=== PATIENT | female | born 1970 | race Caucasian/White ===

== ENCOUNTER 2018-07-05 16:27 | Outpatient (REF) | payer BC, SELFPAY ==
--- NOTE | 2018-07-05 15:45 | PAPFT_PTH ---
PATIENT: Grace Winston LOC: N U#:[id number] AGE/SX: 48/F ROOM: RE07/05/[address]: BRIDGET Fletcher : 1970 BED: DIS: 07/05/2018 SPEC #: [id number] RECD: 07/05/18 17:55 STATUS: HANK REChris #: [id number] USHA: 07/05/18 15:[address]: Padmini Ramos DEPT: [facility] Cytology RECD BY: Keena Ashley ENTERED: 07/05/18 17:55 SP TYPE: PAPFT OT DR: Emigdio Keane MD Tissues: 1 - CX/ENDOCX FOR PAP SMEARS Procedures: PAP THIN PREP/UVM Screening HPV DNA PROBE Comments: [id number]
== END 2018-07-05 16:47 ==
LOC: LBN 16:27
PROVIDERS: PCP Family Medicine; Visit Provider Nurse Practitioner Family
DX: Z12.4 Encounter for screening for malignant neoplasm of cervix (principal); Z11.51 Encounter for screening for human papillomavirus (HPV)
CPT/HCPCS: 88142; 87624

== ENCOUNTER 2018-07-13 01:06 | Outpatient (CLI) | payer BC, SELFPAY ==
--- NOTE | 2018-07-13 16:29 | DI.MAMMO_ITS ---
SYMPTOMS/DIAGNOSIS: SCREENING, Z12.31 MAMMOGRAM: Mammograms were interpreted according to the usual protocol including computer analysis with CAD system, tomosynthesis and C view imaging. The breasts are of moderate density with fairly symmetrical distribution of fibroglandular tissue. No dominant mass or clumped microcalcification is identified in either breast. The current examination is compared with previous examinations including 05/31 and there has been no gross interval change in appearance in comparison with the previous studies. CONCLUSION: No specific evidence of malignancy at this time. Routine screening examinations are suggested at yearly intervals due to the family history of breast carcinoma. Category I. Breast density Category B. MQSA ASSESSMENT OF FINDINGS: Negative. Category 1. Patient will receive a letter notifying them of these results. BI-RADS category B. There are scattered areas of fibroglandular density.
== END 2018-07-13 01:26 ==
PROVIDERS: PCP Family Medicine; Visit Provider Nurse Practitioner Family
DX: Z12.31 Encounter for screening mammogram for malignant neoplasm of breast (principal); Z80.3 Family history of malignant neoplasm of breast
CPT/HCPCS: 77063; 77067

== ENCOUNTER 2019-07-18 15:20 | Outpatient (CLI) | payer BC, SELFPAY ==
[2019-07-18 16:21] LABS: TSH (W/Ref FT4) 3.12 uIU/mL (0.36-3.74)
== END 2019-07-18 15:40 ==
PROVIDERS: PCP Family Medicine; Visit Provider Nurse Practitioner Family
DX: R53.83 Other fatigue (principal)
CPT/HCPCS: 36415; 84443

== ENCOUNTER 2019-07-18 15:36 | Outpatient (REF) | payer BC, SELFPAY ==
--- NOTE | 2019-07-18 15:10 | PAPFT_PTH ---
PATIENT: Grace Winston LOC: [facility] U#:[id number] AGE/SX: 49/F ROOM: RE07/18/[address]: BRIDGET Fletcher : 1970 BED: DIS: 07/18/2019 SPEC #: [id number] RECD: 07/18/19 17:28 STATUS: HANK REChris #: [id number] USHA: 07/18/19 15:[address]: Padmini Ramos DEPT: [facility] Cytology RECD BY: Keena Ashley ENTERED: 07/18/19 17:30 SP TYPE: PAPFT OT DR: Emigdio Keane MD Tissues: 1 - CX/ENDOCX FOR PAP SMEARS Procedures: PAP THIN PREP/UVM Screening HPV DNA PROBE Comments: [id number]
== END 2019-07-18 15:56 ==
LOC: LBN 15:36
PROVIDERS: PCP Family Medicine; Visit Provider Nurse Practitioner Family
DX: Z12.4 Encounter for screening for malignant neoplasm of cervix (principal)
CPT/HCPCS: 88142; 87624

== ENCOUNTER 2019-08-22 01:05 | Outpatient (CLI) | payer BC, SELFPAY ==
--- NOTE | 2019-08-22 15:30 | DI.MAMMO_ITS ---
EXAM: MG MAMMO SCREENING CLINICAL HISTORY: SCREENING TECHNIQUE: Bilateral full field digital CC and MLO mammographic images were obtained with 3D tomosyn thesis and utilizing computer aided detection (CAD). COMPARISON: Available for comparison. FINDINGS: Masses/Architectural Distortion: None seen. Microcalcifications: No suspicious pleomorphic-type are seen. Skin Thickening/Nipple Retraction: None. IMPRESSION: 1. No significant interval change with no specific features of malignancy noted. 2. Unless there is more urgent need, screening mammography is recommended, as per [place] [employer] guidelines. BI-RADS Cat 1 - Negative Breast Density - Category B - Scattered areas of fibroglandular density A negative radiographic report should not delay biopsy if a dominant or clinically suspicious mass is present. Up to ten percent of cancers are not identified on mammography. A negative report may reinforce clinical impression. Adenosis and dense breasts may obscure an underlying neoplasm. False positive reports average 6 to 10%. Patient will receive a letter notifying them of these results.
== END 2019-08-22 01:25 ==
PROVIDERS: PCP Family Medicine; Visit Provider Nurse Practitioner Family
DX: Z12.31 Encounter for screening mammogram for malignant neoplasm of breast (principal)
CPT/HCPCS: 77063; 77067

== ENCOUNTER 2020-11-05 00:56 | Outpatient (CLI) | payer BC, SELFPAY ==
--- NOTE | 2020-11-05 15:28 | DI.MAMMO_ITS ---
Exam(s) MAMMO SCREENING EXAM: MAMMO SCREENING CLINICAL HISTORY: screening. TECHNIQUE: Bilateral full field digital CC and MLO mammographic images were obtained with 3D tomosyn thesis and utilizing computer aided detection (CAD). COMPARISON: Prior mammograms dating back to 2010, the most recent being August 2019. FINDINGS: No new significant radiograph findings in left breast In the upper outer quadrant of the right breast there is a noncalcified lobulated nodular density loc ated approximately 10 cm in from the nipple. Spot compression view recommended No malignant-appearing microcalcification groups is region or elsewhere in either breast There is no significant architectural distortion nor skin thickening-retraction. IMPRESSION: No radiographic evidence of malignancy in left breast Right breast asymmetric density-possible nodule located laterally. Spot compression and possible ult rasound recommended. BI-RADS Category 0 - Assessment Incomplete: Need additional imaging evaluation Breast Density - Category B - Scattered areas of fibroglandular density Breast density Category C or D implies that the patient has dense breast tissue. Dense breast tissue can make it harder to find cancer on a mammogram. Dense breast tissue is also associated with an incr eased risk of breast cancer. This information about the result of the mammogram report was provided to the patient to raise their awareness. Use this report when you speak with the patient about their risks for breast cancer, which includes their family history. At that time, you may recommend additional screening tests (Ultrasoun d or MRI) as these tests may add significant information. A negative radiographic report should not delay biopsy if a dominant or clinically suspicious mass is present. Up to ten percent of cancers are not identified on mammography. A negative report may reinforce clinical impression. Adenosis and dense breasts may obscure an underlying neoplasm. False positive reports average 6 to 10%. Patient will receive a letter notifying them of these results.
== END 2020-11-05 01:16 ==
PROVIDERS: PCP Family Medicine; Visit Provider Nurse Practitioner Family
DX: Z12.31 Encounter for screening mammogram for malignant neoplasm of breast (principal); R92.8 Other abnormal and inconclusive findings on diagnostic imaging of breast
CPT/HCPCS: 77063; 77067

== ENCOUNTER 2020-11-15 01:59 | Outpatient (CLI) | payer BC, SELFPAY ==
--- NOTE | 2020-11-15 | DI.US_ITS ---
Exam(s) MG MAMMO SCREEN CALL BACK UNI US BREAST RT LIMITED EXAM: MG MAMMO SCREEN CALL BACK UNI and U/S breast RT limited CLINICAL HISTORY: F/U MAMMO, NODULAR DENSITY,? NODULE. TECHNIQUE: Craniocaudal and mediolateral oblique Full Field Digital Mammography views of the right b reast with Computer Aided Diagnosis followed by Tomosynthesis and right breast ultrasound. COMPARISON: Priors available for comparison. FINDINGS: Mammography/Tomosynthesis: Masses/Architectural Distortion: No masses persist on the additional views. Microcalcifictions: No suspicious pleomorphic-type are seen. Skin Thickening/Nipple Retraction: None. Right breast US: Echotexture: Normal appearance of the glandular tissue. Shadowing: No suspicious foci. Cyst: There is a 0.4 x 0.4 x 0.3 cm simple cyst at the 10 o'clock position of the right breast. Ther e are 2 benign-appearing lymph nodes present. One at the 10 o'clock position of the right breast telma r the axilla measuring 0.8 x 0.3 x 0.7 cm. The 2nd is in the axilla and measures 1.0 x 0.8 x 0.5 cm. Solid lesions: None seen. Ductal dilation: None. IMPRESSION: 1. No definite evidence of malignancy is noted. 2. A six-month follow-up right mammogram is recommended for re-evaluation. 3. The findings were discussed with the patient on the date of the examination. BI-RADS Category 3 - 6 month - Probably Benign Finding: Recommend follow-up imaging in 6 months Breast Density - Category B - Scattered areas of fibroglandular density Breast density Category C or D implies that the patient has dense breast tissue. Dense breast tissue can make it harder to find cancer on a mammogram. Dense breast tissue is also associated with an incr eased risk of breast cancer. This information about the result of the mammogram report was provided to the patient to raise their awareness. Use this report when you speak with the patient about their risks for breast cancer, which includes their family history. At that time, you may recommend additional screening tests (Ultrasoun d or MRI) as these tests may add significant information. A negative radiographic report should not delay biopsy if a dominant or clinically suspicious mass is present. Up to ten percent of cancers are not identified on mammography. A negative report may reinforce clinical impression. Adenosis and dense breasts may obscure an underlying neoplasm. False positive reports average 6 to 10%. Patient will receive a letter notifying them of these results.
== END 2020-11-15 02:19 ==
PROVIDERS: PCP Family Medicine; Visit Provider Nurse Practitioner Family
DX: Z12.31 Encounter for screening mammogram for malignant neoplasm of breast (principal); R92.8 Other abnormal and inconclusive findings on diagnostic imaging of breast; N60.01 Solitary cyst of right breast; N60.81 Other benign mammary dysplasias of right breast
CPT/HCPCS: 76642; 77063; 77067

== ENCOUNTER 2020-11-28 10:07 | Outpatient (CLI) | payer BC, SELFPAY ==
[2020-11-28 13:18] LABS: Calculated LDL 130 mg/dL (<100); Cholesterol 225 mg/dL (<200); Ferritin 3 ng/mL (8-252); Glucose 88 mg/dL (74-106); HDL Cholesterol 72 mg/dL (40-60); Triglyceride 118 mg/dL (<150)
[2020-11-30 12:52] LABS: Tissue Transglutaminase Ab IgA <1.2 U/mL; Tissue Transglutaminase Ab IgG 1.9 U/mL
== END 2020-11-28 10:08 | disposition home or self-care (01) ==
LOC: LOS 10:07
PROVIDERS: PCP Family Medicine; Referring Provider Family Medicine; Visit Provider Family Medicine
DX: E78.5 Hyperlipidemia, unspecified (principal); R73.9 Hyperglycemia, unspecified; D64.9 Anemia, unspecified; R19.7 Diarrhea, unspecified
CPT/HCPCS: 36415; 80061; 82947; 82728; 83516

== ENCOUNTER 2020-11-29 07:46 | Outpatient (REF) | payer BC, SELFPAY ==
[2020-11-29 21:58] LABS: Campylobacter PCR Negative (Negative); Salmonella PCR Negative (Negative); Shiga Toxin PCR Negative (Negative); Shigella/Enteroinvasive Ecoli Negative (Negative)
== END 2020-11-29 07:47 | disposition home or self-care (01) ==
LOC: LBN 07:46
PROVIDERS: PCP Family Medicine; Visit Provider Family Medicine
DX: R19.7 Diarrhea, unspecified (principal)
CPT/HCPCS: 87329; 87505

== ENCOUNTER 2020-12-04 03:19 | Outpatient (CLI) | payer BC, SELFPAY ==
[2020-12-04 09:02] LABS: HCT 33.3 % (36.0-46.0); HGB 9.9 g/dL (11.2-15.7); MCH 22.3 pg (27.0-33.0); MCHC 29.7 % (32.0-36.0); MPV 9.1 fL (8.0-11.0); Platelet Count 348 10^3/uL (130-400); RBC 4.44 10^6/uL (3.93-5.22); RDW 16.6 % (11.7-14.6); WBC 6.31 10^3/uL (4.4-10.8)
== END 2020-12-04 03:20 | disposition home or self-care (01) ==
LOC: LBO 03:19
PROVIDERS: PCP Family Medicine; Visit Provider Family Medicine
DX: D64.9 Anemia, unspecified (principal)
CPT/HCPCS: 36415; 85027

== ENCOUNTER 2021-01-16 07:14 | Day surgery (SDC) | payer BC, SELFPAY ==
--- NOTE | 2021-01-16 06:38 | COLE_ITS ---
Date of service: 01/16/21 Time of Service: : Colonoscopy Report Date of procedure: 01/16/21 Pre-op diagnosis general: Chronic Diarrhea Post-op diagnosis procedure note: same Procedure: Colonoscopy Surgeon: Kamini Saunders Anesthesia Type: General:No Airway (ASA 2/ Jignesh Jaffe, EMERITA) Estimated blood loss (mL): 0 Pathology: none sent Complications: None Disposition: same day Indications: The patient is here for Colonoscopy pre-op. She has no family history of colon cancer. She has had diarrhea for 2-3 months now with mildy improvement with following a gluten free diet. Discussed using Pepto Bismuth as needed for these symptoms. Stool studies were unremarkable. -Discussed colonoscopy bowel prep as well as the procedure. Discussed possible complications of the procedure to include bleeding, pain, perforation, missed small lesion/polyp, sore throat, aspiration and adverse reaction to the medications. Questions were answered to patient?s satisfaction. No guarantees were implied or given. Prep: Miralax/Dulcolax Procedure Start Time: Procedure End Time: :45 Retraction Time: 12 minutes Findings: Normal colon Procedure Description: After informed consent was obtained the patient was taken to the procedure room and placed in a left decubitous position. Monitors were applied and a time out was done. The patients name, date of , procedure, allergies to medications and metal in their body was reviewed. The patient was then sedated. Once sedated and comfortable a rectal exam was done. External exam was normal. Internal exam revealed a normal sphincter tone and no palpable masses. The scope was then introduced and retro-flexed. No internal hemorrhoids, polyps or masses were identified on retro-flexion. The scope was then advanced to the cecum with some difficulty due to a tortuous colon. The ileocecal vlave and appendiceal orifice were identified. The prep was good. The scope was then slowly retracted over 12 minutes back into the rectum. There were no polyps. There was no diverticulosis noted. The scope was removed and the patient was woken up and taken back to Same day surgery in stable condition. The patient tolerated the procedure well and there were no immediate compl ications. Follow up: The patient should follow up in 10 years unless they develop changes in bowel habits or other new gastrointestinal complaints.
--- NOTE | 2021-01-16 06:39 | W.PM.DSUDISC ---
Discharge Plan Disposition Patient Disposition: HOME Condition: Good Discharge Details Reason For Visit: Colonoscopy Attending Provider: Kamini Saunders Primary Care Provider: Emigdio Keane Home Meds and New Rx's Prescriptions: Continued estradiol [Estrace] 0.01 % (0.1 mg/gram) cream 0.5 gm VG .COMPLEX Qty: 42.5 RF: 2 amberen See Rx Instructions .ROUTE .COMPLEX RF: 0 magnesium 250 mg tablet 250 mg PO DAILY RF: 0 ferrous sulfate 325 mg (65 mg iron) tablet 325 mg PO DAILY RF: 0 vitamin B complex [B Complex-Vitamin B12] Tablet 1 tab PO DAILY RF: 0 sumatriptan [Imitrex] 5 mg/actuation spray,non-aerosol 5 mg NS ONCE PRN (Reason: migraine headache) Qty: 6 RF: 3 acetaminophen [Tylenol Extra Strength] 500 MG tablet 1,000 mg PO DAILY RF: 0 ibuprofen 600 MG tablet 600 mg PO Q6H PRN RF: 0 loratadine [Claritin Liqui-Gel] 10 mg capsule 10 mg PO PRN RF: 0 naproxen sodium [Aleve] 220 mg tablet 220 mg PO BID PRNRF: 0 Discontinued bisacodyl [Dulcolax (bisacodyl)] 5 mg tablet,delayed release (DR/EC) 5 mg PO ONCE Qty: 4 RF: 0 polyethylene glycol 3350 17 gram/dose powder 238 g PO ONCE Qty: 238 RF: 0 Discharge Instructions Instructions: Chronic Diarrhea (DC) Additional Instructions: Findings: Normal colon Follow up: 10 years Please call if you develop: fevers >101.5 Nausea or Vomiting Abdominal pain that is not transient Rectal bleeding that is more then a tbsp A hard abdomen and inability to pass gas DAY SURGERY UNIT POST ENDOSCOPY INSTRUCTIONS Instructions for everyone who is given Anesthesia: For your safety, please do the following for the next 24 Hours: a. Do not drive or operate dangerous equipment b. Do not drink alcohol beverages or use any recreational drugs for the first 24 hours or while taking pain medications. The medications in your body may have a reaction that can be dangerous. c. Do not make any important decisions or sign any important papers 1. Generally there are no restrictions on your activity after a day or so has gone by, but you may feel a bit fatigued for a few days. 2. After you arrive home you may have a light meal and return to a normal diet as you can tolerate it without feeling sick to your stomach. 3. After surgery, you may feel pain or discomfort. This should be only transient, but if it persists please contact your doctor. 4. If there are any questions regarding the findings of your procedure, please feel free to contact your doctor. 6. If you are unable to contact your doctor with a problem, contact the hospital at [phone]. 7. Continue all your regular medications unless directed otherwise. I understand the above instructions and have no questions. Signature of Patient or Responsible Adult Escort Date/Time Name of Responsible Adult Escort Signature of Nurse Date/Time Activity:: Activity as Tolerated Diet:: As Tolerated Discharge Orders Discharge Orders: Discharge Order (Routine); Ordered 01/16/21 Ordered By: Kamini Saunders
[2021-01-16 07:25] VITALS: BP 115/65; PULSE 90; RESP 18; TEMP 36.7; O2SAT 99
[2021-01-16] MEDS: Lactated Ringers 1,000 ML 80 ML IV (07:40)
[2021-01-16 08:55] VITALS: BMI 28.7
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
[2021-01-16 09:01] VITALS: BP 116/60; PULSE 80; RESP 14; TEMP 36.3; O2SAT 97
--- NOTE | 2021-01-16 09:02 | W.ANESPOSTOP ---
Postoperative Evaluation Date, Time and Location Date Performed: 01/16/21 Time Performed: 09:02 Patient Location: Day Surgery Unit Vital Signs Most Recent Imported Vital Signs: Most Recent Vital Signs Temp Pulse Resp BP Pulse Ox 36.7 C 90 18 115/65 99 01/16/21 07:25 01/16/21 07:25 01/16/21 07:25 01/16/21 07:25 01/16/21 07:25 Most Recent Manually Entered Vital Signs: Adult Blood Pressure: 116/60 Heart Rate: 71 Respirations: 12 Oxygen Saturation (%): 98 Temperature (C): 36.3 C Pain Score (0-10 Scale): 0 Pain Score Most Recent Pain Score: Most Recent Pain Score Pain Level 0 01/16/21 07:25 Assessment Mental Status: Awake (Alert & Oriented to Patient Baseline) Airway and Respiratory Function: Patent airway with normal (patient baseline) respiratory exam Cardiovascular Function: Hemodynamically Stable Hydration Status: Adequately Hydrated Nausea & Vomiting: No Nausea or Vomiting Pain: Pt. Denies Any Pain Peripheral Nerve Block: Patient did not receive a nerve block
[2021-01-16 09:03] VITALS: BP 116/60; PULSE 71; RESP 12; TEMPC 36.3; O2SAT 98
[2021-01-16 09:32] VITALS: BP 120/68; PULSE 78; RESP 16; TEMP 36.7; O2SAT 100
== END 2021-01-16 10:10 | disposition home or self-care (01) ==
LOC: SUR 07:15
PROVIDERS: PCP Family Medicine; Visit Provider Surgery
PROC: 0DJD8ZZ Inspection of Lower Intestinal Tract, Via Natural or Artificial Opening Endoscopic (ICD-10-PCS; CPT 45378; principal; 2021-01-16 08:15)
DX: K52.9 Noninfective gastroenteritis and colitis, unspecified (principal)
CPT/HCPCS: 45378; J2001

== ENCOUNTER 2021-05-17 00:08 | Outpatient (CLI) | payer BC, SELFPAY ==
--- NOTE | 2021-05-17 15:00 | DI.MAMMO_ITS ---
Exam(s) MAMMO DIAGNOSTIC UNI EXAM: MAMMO DIAGNOSTIC UNI CLINICAL HISTORY: 6 m o f/u,R92.8. TECHNIQUE: Craniocaudal and mediolateral oblique Full Field Digital Mammography views of the right b reast with Computer Aided Diagnosis followed by Tomosynthesis. COMPARISON: Priors available for comparison FINDINGS: Mammography/Tomosynthesis: Masses/Architectural Distortion: None seen. Microcalcifictions: No suspicious pleomorphic-type are seen. Skin Thickening/Nipple Retraction: None. IMPRESSION: 1. No evidence of malignancy is noted. 2. Unless there is more urgent need, follow-up screening mammography is recommended, as per [place] [employer] guidelines. 3. The findings were discussed with the patient on the date of the examination. BI-RADS Category 1 - Negative Breast Density - Category B - Scattered areas of fibroglandular density Breast density Category C or D implies that the patient has dense breast tissue. Dense breast tissue can make it harder to find cancer on a mammogram. Dense breast tissue is also associated with an incr eased risk of breast cancer. This information about the result of the mammogram report was provided to the patient to raise their awareness. Use this report when you speak with the patient about their risks for breast cancer, which includes their family history. At that time, you may recommend additional screening tests (Ultrasoun d or MRI) as these tests may add significant information. A negative radiographic report should not delay biopsy if a dominant or clinically suspicious mass is present. Up to ten percent of cancers are not identified on mammography. A negative report may reinforce clinical impression. Adenosis and dense breasts may obscure an underlying neoplasm. False positive reports average 6 to 10%. Patient will receive a letter notifying them of these results.
== END 2021-05-17 00:28 ==
PROVIDERS: PCP Family Medicine; Visit Provider Nurse Practitioner Family
DX: R92.8 Other abnormal and inconclusive findings on diagnostic imaging of breast (principal)
CPT/HCPCS: 77061; 77065; G0279

== ENCOUNTER 2022-01-20 15:51 | Outpatient (REF) | payer BC, SELFPAY ==
--- NOTE | 2022-01-20 15:00 | PAPFT_PTH ---
PATIENT: Grace Winston LOC: [facility] U#:[id number] AGE/SX: 51/F ROOM: RE01/20/[address]: BRIDGET Fletcher : 1970 BED: DIS: 01/20/2022 SPEC #: [id number] RECD: 01/21/22 13:12 STATUS: HANK REQ #: [id number] USHA: 01/20/22 15:[address]: Padmini Ramos DEPT: [facility] Cytology RECD BY: Keena Ashley ENTERED: 01/21/22 13:13 SP TYPE: PAPFT OTHR DR: Emigdio Keane MD Tissues: 1 - CX/ENDOCX FOR PAP SMEARS Procedures: PAP THIN PREP/UVM Screening HPV DNA PROBE Comments: [id number]
== END 2022-01-20 15:52 | disposition home or self-care (01) ==
LOC: LBN 15:51
PROVIDERS: PCP Family Medicine; Visit Provider Nurse Practitioner Family
DX: Z12.4 Encounter for screening for malignant neoplasm of cervix (principal); Z11.51 Encounter for screening for human papillomavirus (HPV)
CPT/HCPCS: 88142; 87624

== ENCOUNTER → 2022-02-11 01:15 | Outpatient (CLI) | payer BC, SELFPAY ==
--- NOTE | 2022-02-11 15:55 | DI.MAMMO_ITS ---
Exam(s) MAMMO SCREENING EXAM: MAMMO SCREENING CLINICAL HISTORY: screening TECHNIQUE: Mammograms were interpreted according to the usual protocol including computer analysis w [employer] CAD system, tomosynthesis and C-view imaging. COMPARISON: FINDINGS: The breasts are heterogeneously dense with multiple areas of focal asymmetric density seen bilaterall y. Examination is compared with multiple previous examinations including October 2020 and August 2019. T here are new areas nodularity projected in the upper outer quadrant both right and left breasts. Add itional evaluation with spot compression views of both breasts and bilateral breast ultrasound is rec ommended. No other significant change seen. No suspicious clumped microcalcification. IMPRESSION: New areas of nodularity are seen bilaterally in the upper outer quadrant of each breast, additional e valuation with spot compression views and ultrasound bilaterally is recommended. BI-RADS Category 0 - Assessment Incomplete: Need additional imaging evaluation Breast Density - Category C - Heterogeneously dense
== END ==
PROVIDERS: PCP Family Medicine; Visit Provider Nurse Practitioner Family
DX: Z12.31 Encounter for screening mammogram for malignant neoplasm of breast (principal); R92.8 Other abnormal and inconclusive findings on diagnostic imaging of breast
CPT/HCPCS: 77063; 77067

== ENCOUNTER → 2022-02-18 00:59 | Outpatient (CLI) | payer BC, SELFPAY ==
--- NOTE | 2022-02-18 | DI.US_ITS ---
Exam(s) US BREAST RT LIMITED US BREAST LT LIMITED MG MAMMO SCREEN CALL BACK BI EXAM: MG MAMMO SCREEN CALL BACK BI and limited bilateral breast ultrasound CLINICAL HISTORY: F/U MAMMO, NEW AREAS OF NODULARITY BILATERALLY. TECHNIQUE: Craniocaudal and mediolateral oblique Full Field Digital Mammography views of the bilater al breast with Computer Aided Diagnosis followed by Tomosynthesis and bilateral breast ultrasound. COMPARISON: Comparison is made with prior examinations. FINDINGS: Mammography/Tomosynthesis: Masses/Architectural Distortion: The additional views of the left breast show stable notched nodules in the upper-outer quadrant of the left breast consistent with lymph nodes. There is a partially obs cured well-circumscribed nodule in the upper outer quadrant of the left breast. In the upper outer q uadrant of the right breast no definite persistent masses are seen. Microcalcifictions: No suspicious pleomorphic-type are seen. Skin Thickening/Nipple Retraction: None. Limited bilateral breast US: Echotexture: Normal appearance of the glandular tissue. Shadowing: No suspicious foci. Cyst: There are 2 simple cysts seen in the left breast at the 1 o'clock position 5 cm from the nipple . The larger measures 8 x 5 x 7 mm. The smaller measures 5 x 3 x 5 mm. There is a simple cysts see n in the 2 o'clock position of the left breast 6 cm from the nipple measuring 4 x 4 x 5 mm. No cysti c or solid masses are seen in the imaged right breast. Solid lesions: None seen. Ductal dilation: None. IMPRESSION: 1. No evidence of malignancy is noted. 2. A six-month follow-up left mammogram is recommended for re-evaluation. 3. The findings were discussed with the patient on the date of the examination. BI-RADS Category 3 - 6 month - Probably Benign Finding: Recommend follow-up imaging in 6 months Breast Density - Category B - Scattered areas of fibroglandular density Breast density Category C or D implies that the patient has dense breast tissue. Dense breast tissue can make it harder to find cancer on a mammogram. Dense breast tissue is also associated with an incr eased risk of breast cancer. This information about the result of the mammogram report was provided to the patient to raise their awareness. Use this report when you speak with the patient about their risks for breast cancer, which includes their family history. At that time, you may recommend additional screening tests (Ultrasoun d or MRI) as these tests may add significant information. A negative radiographic report should not delay biopsy if a dominant or clinically suspicious mass is present. Up to ten percent of cancers are not identified on mammography. A negative report may reinforce clinical impression. Adenosis and dense breasts may obscure an underlying neoplasm. False positive reports average 6 to 10%. Patient will receive a letter notifying them of these results.
== END ==
PROVIDERS: PCP Family Medicine; Visit Provider Nurse Practitioner Family
DX: Z12.31 Encounter for screening mammogram for malignant neoplasm of breast (principal); N63.21 Unspecified lump in the left breast, upper outer quadrant
CPT/HCPCS: 76642; 77063; 77067

== ENCOUNTER 2022-02-28 01:47 | Outpatient (CLI) | payer BC, SELFPAY ==
--- OUTSIDE RECORDS SUMMARY | 2022-02-28 01:54 | XMS_ITS | Encounter Summary ---
:1970 Author Organization [facility] Address [address] [place] [address] Care Team Providers Name Role Phone Carlos Alberto Muñiz MD Primary Care Provider Encounter Details Date Type Department Care Team Description 03/14/2016 Results Only [facility]- Padmini Maria, [facility] [phone] [facility] [place] [address] (Wo rk) Social History Tobacco Use Types Packs/Day Years Used Date Never Assessed Sex Assigned at Date Recorded Not on file documented as of this encounter Plan of Treatment Not on filedocumented as of this encounter Procedures Procedure Name Priority Date/Time Associated Diagnosis Comme nts PAP TEST- RESULT Routine 03/14/2016 0:00 EDT Resu lts for this ONLY procedure are i n the results section. documented in this encounter Results PAP TEST- RESULT ONLY (03/14/2016 0:00 EDT) Pathology Report: CYTOPATHOLOGY REPORT [facility] Reports generated via electronic interface contain verito ginal data; SERVICES however they are lacking the format of the original re port. Caution should be taken when reading/interpreting unfo rmatted reports. Name: ? PATRICK WINSTON ? Accession #: ? [id number] : ? 1970 (Age: 45) ??F ?Collect Date: ? 03/14 Location: ? [facility] ? Receive Date : ? 03/17/2016 Provider: ?PADMINI SILVA SHEET TAKER Copy to: ?JEANETTE GRAFF ? Specimen/Source: ? Pap Test, Cervix, ThinPrep Imaging System with manual evaluation Last Menstrual Period: ? 03/10/2016 Previous Gynecologic Pathology: ? CIS: 1993 Treatment History: ? LEEP: 1993 Cone biopsy: 1993 ? SPECIMEN ADEQUACY ? Satisfactory for Evaluation - transformation zone component present GENERAL CATEGORIZATION ? Negative for Intraepithelial Lesion or Malignan cy INTERPRETATION ? Reactive cellular therese nges associated with inflammation present (includes repair). ? Document reviewed and electronically signed by: ? ASPEN ALEJANDRA MD ? Report Date: ??03/19/2016 14:59 End of Report Specimen Performing Organization Address City/State/ZIP Code Phon e Number [facility] [address] [place] [address] SERVICES documented in this encounter Visit Diagnoses Not on filedocumented in this encounter Care Teams Extrusion Engineer Relationship Specialty Start Date End Date Carlos Alberto Muñiz MD PCP - General 01/26/[address] [place] [id number] documented as of this encounter
--- OUTSIDE RECORDS SUMMARY | 2022-02-28 01:54 | XMS_ITS | Encounter Summary ---
:1970 Author Organization [facility] Address [address] [place] [address] Care Team Providers Name Role Phone Unavailable Primary Care Provider Unavailable Encounter Details Date Type Department Care Team Description 01/03/2000 Results Only [facility] - Padmini Macias od, LINE ASSEMBLER AIRCRAFT [address] [place] [phone] (Wo rk) Social History Tobacco Use Types Packs/Day Years Used Date Never Assessed Sex Assigned at Date Recorded Not on file documented as of this encounter Plan of Treatment Not on filedocumented as of this encounter Procedures Procedure Name Priority Date/Time Associated Diagnosis Comme [facility] CYTOPATHOLOGY Routine 01/03/2000 0:00 EDT Results for this procedure are i n the results section . documented in this encounter Results CYTOPATHOLOGY (01/03/2000 0:00 EDT) Pathology Report: CYTOPATHOLOGY REPORT [facility] Reports generated via electronic interface contain verito ginal data; however they are lacking the format of the original re port. Caution should be taken when reading/interpreting unfo rmatted reports. Name: ? PATRICK WINSTON ? Accession #: ? [id number] : ? 1970 (Age: 29) ??F ?Collect Date: ? 12/14 Location: ? [facility] ? Receive Date : ? 01/06/2000 Provider: ?PADMINI SILVA LINE ASSEMBLER AIRCRAFT Copy to: ? Specimen/Source: ?ThinPrep Pap Test, Cervix/ Endocervix Last Menstrual Period: ? 12/27/99 Hormonal/Contraceptive Status: ? Oral contraceptives Previous Gynecologic Pathology: ? CIS Treatment History: ? Cone biopsy: 1993 ? SPECIMEN ADEQUACY ? Satisfactory for evaluation. GENERAL CATEGORIZATION ? Within Normal Limits ? Document reviewed and electronically signed by: ? BOZENA Srinivasan(ASCP) ? Report Date: ??01/07/2000 14:23 End of Report Specimen Performing Organization Address City/State/ZIP Code Phon e Number [facility] [address] [place] [phone] SERVICES [facility] [address] [place] [address] documented in this encounter Visit Diagnoses Not on filedocumented in this encounter
--- OUTSIDE RECORDS SUMMARY | 2022-02-28 01:54 | XMS_ITS | Encounter Summary ---
:1970 Author Organization [facility] Address [address] [place] [address] Care Team Providers Name Role Phone Carlos Alberto Muñiz MD Primary Care Provider Encounter Details Date Type Department Care Team Description 07/19/2019 Lab Requisition [facility] Padmini Ramos E ncounter for other Pathology & BAND BIAS MACHINE OPERATOR general examination Laboratory Medicine [address] [place], [place] [address] [facility] [phone] [place], [place] [id number] Social History Tobacco Use Types Packs/Day Years Used Date Never Assessed Sex Assigned at Date Recorded Not on file documented as of this encounter Plan of Treatment Not on filedocumented as of this encounter Procedures Procedure Name Priority Date/Time Associated Comments Diagnosis PAP TEST Today 07/18/2019 15:10 Encounter for other Resu lts for this EST general examination procedur e are in the results section. HUMAN PAPILLOMAVIRUS Today 07/18/2019 15:10 Encounter for ot her Results for this (HPV) DETECTION-HIGH EST general examination procedure are in RISK TYPES the results section. documented in this encounter Results HUMAN PAPILLOMAVIRUS (HPV) DETECTION-HIGH RISK TYPES (07/18/2019 15:10 EST) Human Papillomavirus NegativeComment: No Negative [facility] (HPV) Detection-High E6 or E7 mRNA is CENTER LABORATOR Y Types detected from HPV SERVICES types 16,18,31,33,35,39,45 ,51,52,56,58,59,66, and 68 by bee rancher mediated amplification. Specimen Pap Test - Cervix and/or Endocervix Performing Organization Address City/State/ZIP Code Phon e Number [facility] [address] [place] [address] SERVICES PAP TEST (07/18/2019 15:10 EST) Specimens A. Cervix and/or [facility] Endocervix, , CENTER ThinPrep Imaging LABORATORY System with Manual SERVICES Evaluation Specimen Adequacy Satisfactory for [facility] Evaluation - CENTER transformation zone LABORATORY component present SERVICES General Negative for [facility] Categorization intraepithelial CENTER lesion or malignancy LABORATORY SERVICES Descriptive Reactive cellular [facility] Diagnosis changes associated CENTER with inflammation LABORATORY present (includes SERVICES repair). Attestation By the signature below, the attending physician certifies that they have personally conducted a gross and/or microscopic [facility] ICA Electronically examination of the described specimens and rendered or confirmed the above diagnosis. CENTER signed by LABORATORY Charlene Nj MD on 020 at 1520 Clinical History SEE ORDER COMMENTS [facility] SERVICES HPV The result for the Human Pap illomavirus (HPV) Detection-High Risk Types is Negative. No E6 or E7 mRNA is detected from HPV types 16,18,31,33,35,39,45,51,52,56,58,59,66, and 68 by bee rancher mediated [facility] amplification.Testing was pe rformed on specimen [id number] and was resulted on 07/27/2019 1513 EST by SERA, LAB INSTRUMENT RESULTS IN [facility] SERVICES Scanned Images [facility] SERVICES Specimen Pap Test - Cervix and/or Endocervix Performing Organization Address City/State/ZIP Code Phon e Number [facility] [address] [place] [address] SERVICES documented in this encounter Visit Diagnoses Diagnosis Encounter for other general examination documented in this encounter Care Teams Tire Shop Mechanic Relationship Specialty Start Date End Date Carlos Alberto Muñiz MD PCP - General 01/26/[address] [place] [address] documented as of this encounter
--- OUTSIDE RECORDS SUMMARY | 2022-02-28 01:54 | XMS_ITS | Encounter Summary ---
:1970 Author Organization [facility] Address [address] [place] [address] Care Team Providers Name Role Phone Unknown, Provider Primary Care Provider Encounter Details Date Type Department Care Team Description 01/24/2013 Results Only [facility] Carlos Alberto Muñiz MD Laboratory Services - [address] [place] [address] 0 [facility] [address] [phone] Social History Tobacco Use Types Packs/Day Years Used Date Never Assessed Sex Assigned at Date Recorded Not on file documented as of this encounter Plan of Treatment Not on filedocumented as of this encounter Procedures Procedure Name Priority Date/Time Associated Diagnosis Comme [facility] SURGICAL PATHOLOGY Routine 01/24/2013 9:15 EDT Re sults for this procedure are i n the results section. documented in this encounter Results SURGICAL PATHOLOGY (01/24/2013 9:15 EDT) Pathology Report: SURGICAL PATHOLOGY REPORT [facility] Reports generated via electronic interface contain verito ginal data; LAB however they are lacking the format of the original re port. Caution should be taken when reading/interpreting unfo rmatted reports. Name: ? PATRICK WINSTON ? Accession #: ? [id number] ? : ? 1970 (Age: 42) ??F ? Collect Date: ? 01/24/2013 ? Location: ? [facility] ? Receive Date: ? 013 ? Provider: CARLOS ALBERTO MUÑIZ MD Copy to: JEANETTE GRAFF ? Final Pathologic Diagnosis: PERIANAL FISTULA, EXCISION: - ??Fragments of anal skin and submucosa with chronic inflammation and granulation tissue consistent with fistula. ??See comm ent. Comment: Due to the absence of acute inflammation abscess canno t be confirmed. Dr. Cruz 01/27/2013 11:32 AM Document reviewed and electronically signed by: SUNNY JONES MD Report ??Date: 01/27/2013 15:30 By the signature above, the attending physician certif ies that he/she has personally conducted a gross and/or microscopic examin ation of the described specimens and rendered or confirmed the above diagnosi s. Specimen(s) Received: Perianal fistula, abscess cavity Clinical History: Recurrent perianal abscess Gross Description: ? Received in formalin labelled with proper patient identification (initials L, S) and perianal fistula cavity are three ta n-brown firm tissue fragments ranging in size from 0.6 x 0.4 x 0.3 cm to 1.8 x 0.8 x 0.3 cm. ??The entire specimen is submitted intact in [address] Cruz 01/25/2013 02:02 PM End of Report Specimen Performing Organization Address City/State/ZIP Code Phon e Number [facility] [address] [place] [phone] SERVICES [facility] [address] [place] [address] documented in this encounter Visit Diagnoses Not on filedocumented in this encounter Care Teams Baker Helper Relationship Specialty Start Date End Date Unknown, Provider, PCP - General 01/11/13 01/25/13 documented as of this encounter
--- OUTSIDE RECORDS SUMMARY | 2022-02-28 01:54 | XMS_ITS | Encounter Summary ---
:1970 Author Organization [facility] Address [address] [place] [address] Care Team Providers Name Role Phone Unavailable Primary Care Provider Unavailable Encounter Details Date Type Department Care Team Description 04/23/2007 Results Only [facility] - Padmini Macias od, WEATHERIZATION SPECIALIST [address] [place] [phone] (Wo rk) Social History Tobacco Use Types Packs/Day Years Used Date Never Assessed Sex Assigned at Date Recorded Not on file documented as of this encounter Plan of Treatment Not on filedocumented as of this encounter Procedures Procedure Name Priority Date/Time Associated Diagnosis Comme nts CYTOPATHOLOGY Routine 04/23/2007 0:00 EST Results for this procedure are i n the results section . documented in this encounter Results CYTOPATHOLOGY (04/23/2007 0:00 EST) Pathology Report: CYTOPATHOLOGY REPORT [facility] Reports generated via electronic interface contain verito ginal data; however they are lacking the format of the original re port. Caution should be taken when reading/interpreting unfo rmatted reports. Name: ? PATRICK WINSTON ? Accession #: ? [id number] : ? 1970 (Age: 36) ??F ?Collect Date: ? 1102/2007 Location: ? [facility] ? Receive Date : ? 04/26/2007 Provider: ?PADMINI SILVA WEATHERIZATION SPECIALIST Copy to: ? Specimen/Source: ? ThinPrep Pap Test, Cervix/Endocervix, processed on [employer] ThinPrep Imaging System, with manual evaluation Last Menstrual Period: ? 03/24/07 Previous Gynecologic Pathology: ? CIS: of cervix 1993 Treatment History: ? Cone biopsy: 1993 Other: ? Additional clinical information: Cvx polyp 2004 HPVA - HPV testing requested if ASC-US on the current ThinPrep Pap test. ? SPECIMEN ADEQUACY ? Satisfactory for Evaluation - transformation zone component present GENERAL CATEGORIZATION ? Negative for Intraepithelial Lesion or Malignan cy ? Document reviewed and electronically signed by: ? BOZENA Estevez(ASCP) ? Report Date: ??04/28/2007 15:04 End of Report Specimen Performing Organization Address City/State/ZIP Code Phon e Number [facility] [address] [place] [address] SERVICES [facility] [address] [place] [address] documented in this encounter Visit Diagnoses Not on filedocumented in this encounter
--- OUTSIDE RECORDS SUMMARY | 2022-02-28 01:54 | XMS_ITS | Encounter Summary ---
:[address] [facility] Address [address] [place] [address] Care Team Providers Name Role Phone Unavailable Primary Care Provider Unavailable Encounter Details Date Type Department Care Team Description 01/12/2002 Results Only [facility] - Padmini Macias od, ORGANIZATIONAL DEVELOPMENT CONSULTANT [address] [place] [phone] (Wo rk) Social History Tobacco Use Types Packs/Day Years Used Date Never Assessed Sex Assigned at Date Recorded Not on file documented as of this encounter Plan of Treatment Not on filedocumented as of this encounter Procedures Procedure Name Priority Date/Time Associated Diagnosis Comme [facility] CYTOPATHOLOGY Routine 01/12/2002 0:00 EDT Results for this procedure are i n the results section . documented in this encounter Results CYTOPATHOLOGY (01/12/2002 0:00 EDT) Pathology Report: CYTOPATHOLOGY REPORT [facility] Reports generated via electronic interface contain verito ginal data; however they are lacking the format of the original re port. Caution should be taken when reading/interpreting unfo rmatted reports. Name: ? PATRICK WINSTON ? Accession #: ? [id number] : ? 1970 (Age: 31) ??F ?Collect Date: ? 12/15 Location: ? [facility] ? Receive Date : ? 01/13/2002 Provider: ?PADMINI SILVA ORGANIZATIONAL DEVELOPMENT CONSULTANT Copy to: ? Specimen/Source: ?ThinPrep Pap Test, Cervix/ Endocervix Last Menstrual Period: ? 12/27/01 Hormonal/Contraceptive Status: ? Oral contraceptives Previous Gynecologic Pathology: ? CIS: of cx Treatment History: ? Cone biopsy: 1993 ? SPECIMEN ADEQUACY ? Satisfactory for Evaluation - transformation zone component present GENERAL CATEGORIZATION ? Negative for Intraepithelial Lesion or Malignan cy ? Document reviewed and electronically signed by: ? ENZO Elena(ASCP) ? Report Date: ??01/19/2002 13:25 End of Report Specimen Performing Organization Address City/State/ZIP Code Phon e Number [facility] [address] [place] [address] SERVICES [facility] [address] [place] [address] documented in this encounter Visit Diagnoses Not on filedocumented in this encounter
--- OUTSIDE RECORDS SUMMARY | 2022-02-28 01:54 | XMS_ITS | Encounter Summary ---
:1970 Author Organization [facility] Address [address] [place] [address] Care Team Providers Name Role Phone Unavailable Primary Care Provider Unavailable Encounter Details Date Type Department Care Team Description 07/13/2009 Orders Only [facility] Zachariah Ramos, [facility] Laboratory Services - [address] [place] [id number] [facility] [address] [place] [address] [phone] Social History Tobacco Use Types Packs/Day Years Used Date Never Assessed Sex Assigned at Date Recorded Not on file documented as of this encounter Plan of Treatment Not on filedocumented as of this encounter Procedures Procedure Name Priority Date/Time Associated Diagnosis Comme [facility] CYTOPATHOLOGY Routine 07/13/2009 0:00 EST Results for this procedure are i n the results section . documented in this encounter Results CYTOPATHOLOGY (07/13/2009 0:00 EST) Pathology Report: CYTOPATHOLOGY REPORT ? [facility] ? LAB Reports generated via [employer] interface contain original data; ? however they are lacking the format of the original report. ? Caution should be taken when reading/interpreting unformatted reports. ? Name: ? PATRICK WINSTON ? Accession #: ? [id number] ? : ? 1970 (Age: 39) ??F ?Collect Date: ? 07/13/2009 ? Location: ? [facility] ? Receive Date: ? 07/16/2009 ? Provider: ?BRITNEY ARMSTRONGG OOD MANAGER NEW PRODUCT ? Copy to: ? Specimen/Source: ? Pap Test, Cervix/Endocervix, ThinPrep Imaging System ? with manual evaluation ? Last Menstrual Period: ? 1/21/10 ? Previous Gynecologic Patholo gy: ? CIS: of the cervix 1994 ? Treatment History: ? Cone biopsy: 1994 ? Other: ? HPVA - HPV testing requested if ASC-US on the current ThinPrep Pap test. ? SPECIMEN ADEQUACY ? Satisfactory for Eval uation ? - transformation zone compon ent present ? GENERAL CATEGORIZATION ? Negative for Intraepi thelial Lesion or Malignancy ? Document reviewed and electr onically signed by: ? Manuel Stumler, CT( CP) ? Report Date: ??02/02/ 2010 13:54 ? End of Report ? Specimen Performing Organization Address City/State/ZIP Code Phon e Number [facility] [address] [place] [address] SERVICES [facility] [address] [place] [address] documented in this encounter Visit Diagnoses Not on filedocumented in this encounter
--- OUTSIDE RECORDS SUMMARY | 2022-02-28 01:54 | XMS_ITS | Encounter Summary ---
:1970 Author Organization [facility] Address [address] [place] [address] Care Team Providers Name Role Phone Carlos Alberto Muñiz MD Primary Care Provider Encounter Details Date Type Department Care Team Description 01/22/2022 Lab Requisition [facility] Padmini Ramos E ncounter for other Pathology & PARTS AND SERVICE MANAGER general examination Laboratory Medicine [address] [place], [place] 111 [facility] [address] [place] [address] Social History Tobacco Use Types Packs/Day Years Used Date Never Assessed Sex Assigned at Date Recorded Not on file documented as of this encounter Plan of Treatment Not on filedocumented as of this encounter Procedures Procedure Name Priority Date/Time Associated Comments Diagnosis PAP TEST Today 01/20/2022 15:00 Encounter for other Resu lts for this EDT general examination procedur e are in the results section. HUMAN PAPILLOMAVIRUS Today 01/20/2022 15:00 Encounter for ot her Results for this (HPV) DETECTION-HIGH EDT general examination procedure are in RISK TYPES the results section. documented in this encounter Results HUMAN PAPILLOMAVIRUS (HPV) DETECTION-HIGH RISK TYPES (01/20/2022 15:00 EDT) Human Papillomavirus NegativeComment: No Negative [facility] (HPV) Detection-High E6 or E7 mRNA is CENTER LABORATOR Y Types detected from HPV SERVICES types 16,18,31,33,35,39,45 ,51,52,56,58,59,66, and 68 by social problems specialist mediated amplification. Specimen Pap Test - Cervix and/or Endocervix Performing Organization Address City/[facility] Phon e Number [facility] [address] [place] [address] SERVICES PAP TEST (01/20/2022 15:00 EDT) Specimens A. Cervix and/or [facility] Endocervix , ThinPrep CENTER Imaging System with LABORATORY Manual Evaluation SERVICES Specimen Adequacy Satisfactory for [facility] Evaluation - CENTER transformation zone LABORATORY component present SERVICES General Negative for [facility] Categorization intraepithelial CENTER lesion or malignancy LABORATORY SERVICES Descriptive Reactive cellular [facility] Diagnosis changes associated CENTER with inflammation LABORATORY present (includes SERVICES repair). Attestation By the signature below, the attending physician certifies that they have personally conducted a gross and/or microscopic [facility] ICA Electronically examination of the described specimens and rendered or confirmed the above diagnosis. CENTER signed by [place] Jeronimo MD on SERVICES 02/04/2022 at 15 09 Clinical History See below [facility] SERVICES HPV The result for the Human Pap illomavirus (HPV) Detection-High Risk Types is Negative. No E6 or E7 mRNA is detected from HPV types 16,18,31,33,35,39,45,51,52,56,58,59,66, and 68 by social problems specialist mediated [facility] amplification.Testing was pe rformed on specimen [id number] and was resulted on 02/04/2022 1502 EDT by SERA, LAB INSTRUMENT RESULTS IN [facility] SERVICES Performing Lab [facility] SERVICES Scanned Images [facility] SERVICES Specimen Pap Test - Cervix and/or Endocervix Performing Organization Address City/[facility]/ZIP Code Phon e Number [facility] [address] [place] [address] SERVICES documented in this encounter Visit Diagnoses Diagnosis Encounter for other general examination documented in this encounter Care Teams Resource Conservationist Relationship Specialty Start Date End Date Carlos Alberto Muñiz MD PCP - General 01/26/[address] [place] [address] documented as of this encounter
--- OUTSIDE RECORDS SUMMARY | 2022-02-28 01:54 | XMS_ITS | Encounter Summary ---
:1970 Author Organization [facility] Address [address] [place] [address] Care Team Providers Name Role Phone Carlos Alberto Muñiz MD Primary Care Provider Encounter Details Date Type Department Care Team Description 11/29/2020 Lab Requisition [facility] Outr Resulting Lab, Pathology & Laboratory Provider [facility] [address] [place], [place] [address] Social History Tobacco Use Types Packs/Day Years Used Date Never Assessed Sex Assigned at Date Recorded Not on file documented as of this encounter Plan of Treatment Not on filedocumented as of this encounter Procedures Procedure Name Priority Date/Time Associated Comments Diagnosis GIARDIA AND Routine 11/29/2020 9:27 Results for this CRYPTOSPORIDIUM ANTIGENS EDT pro cedure are in the results section. documented in this encounter Results GIARDIA AND CRYPTOSPORIDIUM ANTIGENS (11/29/2020 9:27 EDT) Giardia and Cryptosporidium Cryptosporidium [facility] Cryptosporidium Antigen Neg and Antigen Neg and CENTER Giardia Antigen Neg Giardia Antigen Neg LABORATORY SERVICES Specimen Feces - Specimen from rectum (specimen) Performing Organization Address City/State/ZIP Code Phon e Number [facility] [address] [place] [address] SERVICES documented in this encounter Visit Diagnoses Not on filedocumented in this encounter Care Teams Supervisor Assembly Room Relationship Specialty Start Date End Date Carlos Alberto Muñiz MD PCP - General 01/26/[address] [place] [phone] documented as of this encounter
--- OUTSIDE RECORDS SUMMARY | 2022-02-28 01:54 | XMS_ITS | Encounter Summary ---
:1970 Author Organization [facility] Address [address] [place] [address] Care Team Providers Name Role Phone Carlos Alberto Muñiz MD Primary Care Provider Encounter Details Date Type Department Care Team Description 01/22/2015 Results Only [facility]- Padmini Maria, [facility] [phone] [facility] [place] [address] (Wo rk) Social History Tobacco Use Types Packs/Day Years Used Date Never Assessed Sex Assigned at Date Recorded Not on file documented as of this encounter Plan of Treatment Not on filedocumented as of this encounter Procedures Procedure Name Priority Date/Time Associated Diagnosis Comme nts PAP TEST- RESULT Routine 01/22/2015 0:00 EDT Resu lts for this ONLY procedure are i n the results section. documented in this encounter Results PAP TEST- RESULT ONLY (01/22/2015 0:00 EDT) Pathology Report: CYTOPATHOLOGY REPORT [facility] Reports generated via electronic interface contain verito ginal data; SERVICES however they are lacking the format of the original re port. Caution should be taken when reading/interpreting unfo rmatted reports. Name: ? PATRICK WINSTON ? Accession #: ? [id number] ? : ? 1970 (Age: 44) ??F ?Collect Date: ? 01/22/2015 ? Location: ? [facility] ? Receive Date: ? 01/24/20 15 ? Provider: PADMINI SILVA STEWARD/STEWARDESS WINE Copy to: JEANETTE GRAFF ? Final Report SPECIMEN ADEQUACY ? Satisfactory for Evaluation - transformation zone component present GENERAL CATEGORIZATION ? Epithelial Cell Abnormality INTERPRETATION ? Squamous Cell Abnormality - Atypical squamous c ells, undetermined significance (ASC-US). EDUCATIONAL NOTES/RECOMMENDATIONS ? [facility] recommends foll owing ASCCP's 2012 Updated Consensus Guidelines for the Management of Abnormal Cervical Cancer Screening T ests and Cancer Precursors (JLGTD, 2013; 17(5):S1-S27). ??Conse nsus guidelines are available online at www.asccp.org. Last Menstrual Period: 01/03/15 Previous Gynecologic Pathology: CIS: 1994 Treatment History: LEEP: 1993 Cone biopsy: 1993 Specimen/Source: ??Pap Test, Cervix/Endocervix, ThinPr ep Imaging System with manual evaluation Document reviewed and electronically signed by: ? INES FERNANDEZ MD [facility] ? Report ??Date: 01/30/2015 11:15 HPV with Pap Test ? Date Ordered: ? 01/30/2015 ? Status: ?? Signed Out ?Date Complete: ? 02/01/2015 ? By: ??Sy stem Interface ? Date Reported: ? 02/01/2015 ? Interpretation RESULT: Negative for HPV. No E6 or E7 mRNA is detected from HPV types 16,18,31,3 3,35, 39,45,51,52,56,58,59,66, and 68 by putty tinter maker media saran amplification. Comments Document reviewed and electronically signed by: ? System Interface ? Report date: 02/01/2015 By the signature above, the attending physician certif ies that he/she has personally conducted a gross and/or microscopic examin ation of the described specimens and rendered or confirmed the above diagnosi s. End of Report Specimen Performing Organization Address City/State/ZIP Code Phon e Number [facility] [address] [place] [address] SERVICES documented in this encounter Visit Diagnoses Not on filedocumented in this encounter Care Teams Crtt Relationship Specialty Start Date End Date Carlos Alberto Muñiz MD PCP - General 01/26/[address] [place] [address] documented as of this encounter
--- OUTSIDE RECORDS SUMMARY | 2022-02-28 01:54 | XMS_ITS | Encounter Summary ---
:1970 Author Organization [facility] Address [address] [place] [address] Care Team Providers Name Role Phone Unavailable Primary Care Provider Unavailable Encounter Details Date Type Department Care Team Description 07/19/2010 Results Only [facility] Zachariah Ramos, TRAFFIC RATE COMPUTER Laboratory Services - [address] [facility] [address] Mathur [place], [place] [address] [facility] [address] [place] [address] [phone] Social History Tobacco Use Types Packs/Day Years Used Date Never Assessed Sex Assigned at Date Recorded Not on file documented as of this encounter Plan of Treatment Not on filedocumented as of this encounter Procedures Procedure Name Priority Date/Time Associated Diagnosis Comme [facility] CYTOPATHOLOGY Routine 07/19/2010 0:00 EST Results for this procedure are i n the results section . documented in this encounter Results CYTOPATHOLOGY (07/19/2010 0:00 EST) Pathology Report: CYTOPATHOLOGY REPORT ? [facility] ? LAB Reports generated via [employer] Intake interface contain original data; ? however they are lacking the format of the original report. ? Caution should be taken when reading/interpreting unformatted reports. ? Name: ? PATRICK WINSTON ? Accession #: ? [id number] ? : ? 1970 (Age: 40) ??F ?Collect Date: ? 07/19/2010 ? Location: ? [facility] ? Receive Date: ? 07/22/2010 ? Provider: ?BRITNEY ARMSTRONGG OOD TRAFFIC RATE COMPUTER ? Copy to: ? Specimen/Source: ? Pap Test, Cervix/Endocervix, ThinPrep Imaging System ? with manual evaluation ? Last Menstrual Period: ? 01/16/11 ? Previous Gynecologic Patholo gy: ? CIS: of cervix 1994 ? Treatment History: ? Cone biopsy: 1994 ? SPECIMEN ADEQUACY ? Satisfactory for Eval uation ? - transformation zone compon ent present ? GENERAL CATEGORIZATION ? Negative for Intraepi thelial Lesion or Malignancy ? Document reviewed and electr onically signed by: ? Manuel Stowenler, CT( CP) ? Report Date: ??02/09/ 2011 16:08 ? End of Report ? Specimen Performing Organization Address City/State/ZIP Code Phon e Number [facility] [address] [place] [address] SERVICES [facility] [address] [place] [address] documented in this encounter Visit Diagnoses Not on filedocumented in this encounter
--- OUTSIDE RECORDS SUMMARY | 2022-02-28 01:54 | XMS_ITS | Encounter Summary ---
:1970 Author Organization [facility] Address [address] [place] [address] Care Team Providers Name Role Phone Carlos Alberto Muñiz MD Primary Care Provider Encounter Details Date Type Department Care Team Description 07/05/2018 Results Only [facility]- Padmini Maria, [facility] [phone] [facility] [place] [address] (Wo rk) Social History Tobacco Use Types Packs/Day Years Used Date Never Assessed Sex Assigned at Date Recorded Not on file documented as of this encounter Plan of Treatment Not on filedocumented as of this encounter Procedures Procedure Name Priority Date/Time Associated Diagnosis Comme nts PAP TEST- RESULT Routine 07/05/2018 0:00 EST Resu lts for this ONLY procedure are i n the results section. documented in this encounter Results PAP TEST- RESULT ONLY (07/05/2018 0:00 EST) Pathology Report: CYTOPATHOLOGY REPORT [facility] Reports generated via electronic interface contain verito ginal data; SERVICES however they are lacking the format of the original re port. Caution should be taken when reading/interpreting unfo rmatted reports. Name: ? PATRICK WINSTON ? Accession #: ? [id number] ? : ? 1970 (Age: 48) ??F ?Collect Date: ? 07/05/2018 ? Location: ? [facility] ? Receive Date: ? 07/06/19 19 ? Provider: PADMINI SILVA LOOM CHANGEOVER OPERATOR Copy to: KOURTNEY QUACH MD ? Final Report SPECIMEN ADEQUACY ? Satisfactory for Evaluation - transformation zone component present GENERAL CATEGORIZATION ? Epithelial Cell Abnormality INTERPRETATION ? Squamous Cell Abnormality - Atypical squamous c ells, undetermined significance (ASC-US). EDUCATIONAL NOTES/RECOMMENDATIONS ? [facility] recommends foll owing ASCCP's 2012 Updated Consensus Guidelines for the Management of Abnormal Cervical Cancer Screening T ests and Cancer Precursors (JLGTD, 2013; 17(5):S1-S27). ??Conse nsus guidelines are available online at www.asccp.org. Last Menstrual Period: 06/21/18 Previous Gynecologic Pathology: CIS: 1994 Treatment History: LEEP Cone biopsy Specimen/Source: ??Pap Test, Cervix, ThinPrep Imaging System with manual evaluation Document reviewed and electronically signed by: ? ALONSO MOSELY MD ? Report ??Date: 07/09/2018 10:55 HPV with Pap Test ? Date Ordered: ? 07/09/2018 ? Status: ?? Signed Out ?Date Complete: ? 07/12/2018 ? By: ??Sy stem Interface ? Date Reported: ? 07/12/2018 ? Interpretation RESULT: Negative for HPV. No E6 or E7 mRNA is detected from HPV types 16,18,31,3 3,35, 39,45,51,52,56,58,59,66, and 68 by oil and gas lease pumper media saran amplification. Comments Document reviewed and electronically signed by: ? System Interface ? Report date: 07/12/2018 By the signature above, the attending physician certif ies that he/she has personally conducted a gross and/or microscopic examin ation of the described specimens and rendered or confirmed the above diagnosi s. End of Report Specimen Performing Organization Address City/State/ZIP Code Phon e Number [facility] [address] [place] [address] SERVICES documented in this encounter Visit Diagnoses Not on filedocumented in this encounter Care Teams Mandarin Teacher Relationship Specialty Start Date End Date Carlos Alberto Muñiz MD PCP - General 01/26/[address] [place] [address] [phone] documented as of this encounter
--- OUTSIDE RECORDS SUMMARY | 2022-02-28 01:54 | XMS_ITS | Encounter Summary ---
:1970 Author Organization [facility] Address [address] [place] [address] Care Team Providers Name Role Phone Unknown, Provider Primary Care Provider Encounter Details Date Type Department Care Team Description 01/10/[address] [facility] Zachariah Ramos, [facility] Laboratory Services - [address] Kareen Hawthorne [address] [address] [place] [address] [phone] Social History Tobacco Use Types Packs/Day Years Used Date Never Assessed Sex Assigned at Date Recorded Not on file documented as of this encounter Plan of Treatment Not on filedocumented as of this encounter Procedures Procedure Name Priority Date/Time Associated Diagnosis Comme nts PAP TEST- RESULT Routine 01/10/2013 0:00 EDT Resu lts for this ONLY procedure are i n the results section. documented in this encounter Results PAP TEST- RESULT ONLY (01/10/2013 0:00 EDT) Pathology Report: CYTOPATHOLOGY REPORT [facility] Reports generated via electronic interface contain verito ginal data; however they are lacking the format of the original re port. Caution should be taken when reading/interpreting unfo rmatted reports. Name: ? PATRICK WINSTON ? Accession #: ? [id number] : ? 1970 (Age: 42) ??F ?Collect Date: ? 12/14 Location: ? [facility] ? Receive Date : ? 01/11/2013 Provider: ?BRITNEY RAMOS OUTSOLE SKIVER Copy to: ?JEANETTE GRAFF ? Specimen/Source: ? Pap Test, Cervix/Endocervix, ThinPrep Imaging System with manual evaluation Last Menstrual Period: ? 12/12/2012 Hormonal/Contraceptive Status: ? Yes: VAS Previous Gynecologic Pathology: ? CIS: 1993 Treatment History: ? LEEP Cone biopsy ? SPECIMEN ADEQUACY ? Satisfactory for Evaluation - transformation zone component present GENERAL CATEGORIZATION ? Negative for Intraepithelial Lesion or Malignan cy INTERPRETATION ? Fungal organisms pres ent morphologically consistent with Ana María species. ? Document reviewed and electronically signed by: ? BOZENA Estevez(ASCP) ? Report Date: ??01/20/2013 10:37 End of Report Specimen Performing Organization Address City/State/ZIP Code Phon e Number [facility] [address] [place] [address] SERVICES [facility] [address] [place] [address] documented in this encounter Visit Diagnoses Not on filedocumented in this encounter Care Teams Internet Cafe Manager Relationship Specialty Start Date End Date Unknown, Provider, PCP - General 01/11/13 01/25/13 documented as of this encounter
--- OUTSIDE RECORDS SUMMARY | 2022-02-28 01:54 | XMS_ITS | Encounter Summary ---
:1970 Author Organization [facility] Address [address] [place] [address] Care Team Providers Name Role Phone Carlos Alberto Muñiz MD Primary Care Provider Encounter Details Date Type Department Care Team Description 05/29/2017 Hospital Encounter [facility] - S Unknown, Pro Blaze watts MD [address] [facility] [phone] [place] [address] (Work) [phone] Social History Tobacco Use Types Packs/Day Years Used Date Never Assessed Sex Assigned at Date Recorded Not on file documented as of this encounter Discharge Disposition Disposition Code Departure Means Destination Home or Self Detention documented in this encounter Plan of Treatment Not on filedocumented as of this encounter Visit Diagnoses Not on filedocumented in this encounter Care Teams Nozzle Cement Sprayer Helper Relationship Specialty Start Date End Date Carlos Alberto Muñiz MD PCP - General 01/26/[address] [place] [phone] documented as of this encounter
--- OUTSIDE RECORDS SUMMARY | 2022-02-28 01:54 | XMS_ITS | Encounter Summary ---
:1970 Author Organization [facility] Address [address] [place] [address] Care Team Providers Name Role Phone Unavailable Primary Care Provider Unavailable Encounter Details Date Type Department Care Team Description 03/19/2005 Results Only [facility] - Padmini Macias od, NOTCHING PRESS OPERATOR [address] [place] [phone] (Wo rk) Social History Tobacco Use Types Packs/Day Years Used Date Never Assessed Sex Assigned at Date Recorded Not on file documented as of this encounter Plan of Treatment Not on filedocumented as of this encounter Procedures Procedure Name Priority Date/Time Associated Diagnosis Comme [facility] CYTOPATHOLOGY Routine 03/19/2005 0:00 EDT Results for this procedure are i n the results section . documented in this encounter Results CYTOPATHOLOGY (03/19/2005 0:00 EDT) Pathology Report: CYTOPATHOLOGY REPORT [facility] Reports generated via electronic interface contain verito ginal data; however they are lacking the format of the original re port. Caution should be taken when reading/interpreting unfo rmatted reports. Name: ? PATRICK WINSTON ? Accession #: ? [id number] : ? 1970 (Age: 34) ??F ?Collect Date: ? 100 10/2004 Location: ? [facility] ? Receive Date : ? 03/20/2005 Provider: ?PADMINI SILVA NOTCHING PRESS OPERATOR Copy to: ? Specimen/Source: ? ThinPrep Pap Test, Cervix/Endocervix, processed on [employer] ThinPrep Imaging System, with manual evaluation Last Menstrual Period: ? 03/09/05 Treatment History: ? Cone biopsy: 1993 Other: ? HPVA - HPV testing requested if ASC-US on the current ThinPrep Pap test. ? SPECIMEN ADEQUACY ? Satisfactory for Evaluation - transformation zone component present - scant squamous epithelial component secondary to exc essive mucus GENERAL CATEGORIZATION ? Negative for Intraepithelial Lesion or Malignan cy ? Document reviewed and electronically signed by: ? ENZO Castaneda(ASCP) ? Report Date: ??03/26/2005 08:30 End of Report Specimen Performing Organization Address City/State/ZIP Code Phon e Number [facility] [address] [place] [address] SERVICES [facility] [address] [place] [address] documented in this encounter Visit Diagnoses Not on filedocumented in this encounter
--- OUTSIDE RECORDS SUMMARY | 2022-02-28 01:54 | XMS_ITS | Encounter Summary ---
:1970 Author Organization [facility] Address [address] [place] [address] Care Team Providers Name Role Phone Unavailable Primary Care Provider Unavailable Encounter Details Date Type Department Care Team Description 02/28/2003 Results Only [facility] - Padmini Macias od, POWER CHISEL OPERATOR [address] [place] [phone] (Wo rk) Social History Tobacco Use Types Packs/Day Years Used Date Never Assessed Sex Assigned at Date Recorded Not on file documented as of this encounter Plan of Treatment Not on filedocumented as of this encounter Procedures Procedure Name Priority Date/Time Associated Diagnosis Comme nts CYTOPATHOLOGY Routine 02/28/2003 0:00 EDT Results for this procedure are i n the results section . documented in this encounter Results CYTOPATHOLOGY (02/28/2003 0:00 EDT) Pathology Report: CYTOPATHOLOGY REPORT [facility] Reports generated via electronic interface contain verito ginal data; however they are lacking the format of the original re port. Caution should be taken when reading/interpreting unfo rmatted reports. Name: ? PATRICK WINSTON ? Accession #: ? [id number] : ? 1970 (Age: 32) ??F ?Collect Date: ? 02/13 Location: ? [facility] ? Receive Date : ? 03/01/2003 Provider: ?PADMINI SILVA POWER CHISEL OPERATOR Copy to: ? Specimen/Source: ?ThinPrep Pap Test, Cervix/ Endocervix Last Menstrual Period: ? 02/21/03 Hormonal/Contraceptive Status: ? Yes Previous Gynecologic Pathology: ? CIS: Of cervix Treatment History: ? Cone biopsy: 1993 ? SPECIMEN ADEQUACY ? Satisfactory for Evaluation - transformation zone component present GENERAL CATEGORIZATION ? Negative for Intraepithelial Lesion or Malignan cy ? Document reviewed and electronically signed by: ? BOZENA Mcmanus(ASCP) ? Report Date: ??03/03/2003 16:40 End of Report Specimen Performing Organization Address City/State/ZIP Code Phon e Number [facility] [address] [place] [address] SERVICES [facility] [address] [place] [address] documented in this encounter Visit Diagnoses Not on filedocumented in this encounter
--- OUTSIDE RECORDS SUMMARY | 2022-02-28 01:54 | XMS_ITS | Encounter Summary ---
:1970 Author Organization [facility] Address [address] [place] [address] Care Team Providers Name Role Phone Unavailable Primary Care Provider Unavailable Encounter Details Date Type Department Care Team Description 10/21/2011 Results Only [facility] Zachariah Ramos, [facility] Laboratory Services - [address] [facility] [address] Mathur [place], [place] [address] [facility] [id number] [place] [address] [phone] Social History Tobacco Use Types Packs/Day Years Used Date Never Assessed Sex Assigned at Date Recorded Not on file documented as of this encounter Plan of Treatment Not on filedocumented as of this encounter Procedures Procedure Name Priority Date/Time Associated Diagnosis Comme nts PAP TEST- RESULT Routine 10/21/2011 0:00 EDT Resu lts for this ONLY procedure are i n the results section. documented in this encounter Results PAP TEST- RESULT ONLY (10/21/2011 0:00 EDT) Pathology Report: CYTOPATHOLOGY REPORT [facility] Reports generated via electronic interface contain verito ginal data; however they are lacking the format of the original re port. Caution should be taken when reading/interpreting unfo rmatted reports. Name: ? PATRICK WINSTON ? Accession #: ? [id number] : ? 1970 (Age: 41) ??F ?Collect Date: ? 05/0 01/2012 Location: ? [facility] ? Receive Date : ? 10/22/2011 Provider: ?BRITNEY RAMOS NEWSPAPER REPORTER Copy to: ?JEANETTE GRAFF ? Specimen/Source: ? Pap Test, Cervix/Endocervix, ThinPrep Imaging System with manual evaluation Last Menstrual Period: ? 10/08/11 Previous Gynecologic Pathology: ? Carcinoma: CIS cx 1993 Treatment History: ? Cone biopsy: 1994 Other: ? Additional clinical information: paps negative since 1 994 ? SPECIMEN ADEQUACY ? Satisfactory for Evaluation - transformation zone component present GENERAL CATEGORIZATION ? Negative for Intraepithelial Lesion or Malignan cy ? Document reviewed and electronically signed by: ? BOZENA Dennis(ASCP) ? Report Date: ??10/27/2011 16:09 End of Report Specimen Performing Organization Address City/State/ZIP Code Phon e Number [facility] [address] [place] [address] SERVICES [facility] [address] [place] [address] documented in this encounter Visit Diagnoses Not on filedocumented in this encounter
--- OUTSIDE RECORDS SUMMARY | 2022-02-28 01:54 | XMS_ITS | Encounter Summary ---
:1970 Author Organization Address [address] [place] [address] Care Team Providers Name Role Phone Carlos Alberto Muñiz MD Primary Care Provider Encounter Details Date Type Department Care Team Description 11/29/2020 Lab Requisition [facility] Outr Resulting Lab, Pathology & Laboratory Provider [facility] [address] [place], [place] [address] Social History Tobacco Use Types Packs/Day Years Used Date Never Assessed Sex Assigned at Date Recorded Not on file documented as of this encounter Plan of Treatment Not on filedocumented as of this encounter Procedures Procedure Name Priority Date/Time Associated Diagnosis Comme nts FECAL BACTERIAL Routine 11/29/2020 7:30 EDT Resul ts for this PATHOGENS BY PCR procedure a re in the results section. documented in this encounter Results FECAL BACTERIAL PATHOGENS BY PCR (11/29/2020 7:30 EDT) Pathologist Sig nature Salmonella PCR Negative Negative [facility] SERVICES Shigella/Enteroinvasive Negative Negative [facility]. coli LABORATORY SERVICES [facility] CAMPYLO[facility]CTER PCR Negative Negative [facility] ER LABORATORY SERVICES Shiga Toxin PCR Negative Negative [facility] SERVICES Specimen Feces - Specimen from rectum (specimen) Performing Organization Address City/State/ZIP Code Phon e Number [facility] [address] [place] [address] SERVICES documented in this encounter Visit Diagnoses Not on filedocumented in this encounter Care Teams Band Bias Machine Operator Relationship Specialty Start Date End Date Carlos Alberto Muñiz MD PCP - General 01/26/[address] [place] [id number] documented as of this encounter
--- OUTSIDE RECORDS SUMMARY | 2022-02-28 01:54 | XMS_ITS | Encounter Summary ---
:1970 Author Organization [facility] Address [address] [place] [address] Care Team Providers Name Role Phone Unavailable Primary Care Provider Unavailable Encounter Details Date Type Department Care Team Description 03/01/2004 Results Only [facility] - Padmini Macias od, [employer] [address] [place] [phone] (Wo rk) Social History Tobacco Use Types Packs/Day Years Used Date Never Assessed Sex Assigned at Date Recorded Not on file documented as of this encounter Plan of Treatment Not on filedocumented as of this encounter Procedures Procedure Name Priority Date/Time Associated Diagnosis Comme nts CYTOPATHOLOGY Routine 03/01/2004 0:00 EDT Results for this procedure are i n the results section . documented in this encounter Results CYTOPATHOLOGY (03/01/2004 0:00 EDT) Pathology Report: CYTOPATHOLOGY REPORT [facility] Reports generated via electronic interface contain verito ginal data; however they are lacking the format of the original re port. Caution should be taken when reading/interpreting unfo rmatted reports. Name: ? PATRICK WINSTON ? Accession #: ? [id number] : ? 1970 (Age: 33) ??F ?Collect Date: ? 02/13 Location: ? [facility] ? Receive Date : ? 03/04/2004 Provider: ?PADMINI SILVA [employer] Copy to: ? Specimen/Source: ?ThinPrep Pap Test, Cervix/ Endocervix Last Menstrual Period: ? 02/18/04 Hormonal/Contraceptive Status: ? Oral contraceptives Previous Gynecologic Pathology: ? Yes: Cx. polyp noted Treatment History: ? Cone biopsy: 1993 Other: ? HPVA - HPV testing requested if ASC-US on the current ThinPrep Pap test. ? SPECIMEN ADEQUACY ? Satisfactory for Evaluation - transformation zone component present GENERAL CATEGORIZATION ? Negative for Intraepithelial Lesion or Malignan cy ? Document reviewed and electronically signed by: ? ENZO Castaneda(ASCP) ? Report Date: ??03/07/2004 14:27 End of Report Specimen Performing Organization Address City/State/ZIP Code Phon e Number [facility] [address] [place] [address] SERVICES [facility] [address] [place] [address] documented in this encounter Visit Diagnoses Not on filedocumented in this encounter
--- OUTSIDE RECORDS SUMMARY | 2022-02-28 01:54 | XMS_ITS | Encounter Summary ---
:1970 Author Organization [facility] Address [address] [place] [address] Care Team Providers Name Role Phone Carlos Alberto Muñiz MD Primary Care Provider Encounter Details Date Type Department Care Team Description 01/22/2015 Hospital Encounter [facility]- Kareen Unknown, Provider, [facility] [address] [facility] [phone] [place] [address] (Work) [phone] Social History Tobacco Use Types Packs/Day Years Used Date Never Assessed Sex Assigned at Date Recorded Not on file documented as of this encounter Discharge Disposition Disposition Code Departure Means Destination Home or Self Usp documented in this encounter Plan of Treatment Not on filedocumented as of this encounter Visit Diagnoses Not on filedocumented in this encounter Care Teams Java Manager Relationship Specialty Start Date End Date Carlos Alberto Muñiz MD PCP - General 01/26/[address] [place] [phone] documented as of this encounter
--- OUTSIDE RECORDS SUMMARY | 2022-02-28 01:54 | XMS_ITS | Encounter Summary ---
:1970 Author Organization [facility] Address [address] [place] [address] Care Team Providers Name Role Phone Unavailable Primary Care Provider Unavailable Encounter Details Date Type Department Care Team Description 06/09/2008 Before PRISM [facility] - Padmini Ramos, Converted Visit Maple conversion SECURITY FIELD SUPERVISOR (Maple) [address] [place] [address] [place], [place] [phone] (Wo rk) Social History Tobacco Use Types Packs/Day Years Used Date Never Assessed Sex Assigned at Date Recorded Not on file documented as of this encounter Plan of Treatment Not on filedocumented as of this encounter Procedures Procedure Name Priority Date/Time Associated Comments Diagnosis HPV DETECTION, HIGH Routine 06/09/2008 14:00 Resu lts for this RISK TYPES EST procedure are i n the results section. CYTOPATHOLOGY Routine 06/09/2008 0:00 Results for this EST procedure are i n the results section. documented in this encounter Results HUMAN PAPILLOMA VIRUS DNA TEST (06/09/2008 14:00 EST) Specimen Description Cervix, ThinPrep [facility] vial Result Negative for HPV [facility] types 16, 18, 31, 33, 35, 39, 45, 51, 52, 56, 58, 59, and 68. Report Status Final [facility] 06/22/2008 Specimen Performing Organization Address City/State/ZIP Code Phon e Number [facility] [address] [place] [address] SERVICES [facility] [address] [place] [address] CYTOPATHOLOGY (06/09/2008 0:00 EST) Pathology Report: CYTOPATHOLOGY REPORT ? [facility] ? LAB Reports generated via electr [employer] interface contain original data; ? however they are lacking the format of the original report. ? Caution should be taken when reading/interpreting unformatted reports. ? Name: ? PATRICK WINSTON ? Accession #: ? [id number] ? : ? 1970 (Age: 38) ??F ?Collect Date: ? 06/09/2008 ? Location: ? [facility] ? Receive Date: ? 06/12/2008 ? Provider: ?PADMINI LOVE OOD SECURITY FIELD SUPERVISOR ? Copy to: ? Specimen/Source: ? Pap Test, Cervix/Endocervix, ThinPrep Imaging System ? with manual evaluation ? Last Menstrual Period: ? 11/29/08 ? Previous Gynecologic Patholo gy: ? 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 Treatment History: ? Cone biopsy: 1994 ? Other: ? Additional clinical informat ion: Cvx polyp 2005 ? HPVDX - HPV testing requeste d regardless of diagnosis on current ThinPrep Pap ?? test. ? SPECIMEN ADEQUACY ? - scant squamous epit helial component secondary to excessive blood ? GENERAL CATEGORIZATION ? Negative for Intraepi thelial Lesion or Malignancy ? Document reviewed and electr onically signed by: ? SUZETTE MOUNT MD ? Report Date: ??01/05/ 2009 15:29 ? End of Report ? Specimen Performing Organization Address City/State/ZIP Code Phon e Number [facility] [address] [place] [address] SERVICES [facility] [address] [place] [address] documented in this encounter Visit Diagnoses Not on filedocumented in this encounter
--- OUTSIDE RECORDS SUMMARY | 2022-02-28 01:54 | XMS_ITS | Encounter Summary ---
:1970 Author Organization [facility] Address [address] [place] [address] Care Team Providers Name Role Phone Carlos Alberto Muñiz MD Primary Care Provider Encounter Details Date Type Department Care Team Description 05/29/2017 Results Only [facility]- Jelly Parker MD [phone] [address] (Wo rk) Social History Tobacco Use Types Packs/Day Years Used Date Never Assessed Sex Assigned at Date Recorded Not on file documented as of this encounter Plan of Treatment Not on filedocumented as of this encounter Procedures Procedure Name Priority Date/Time Associated Diagnosis Comme [facility] SURGICAL PATHOLOGY Routine 05/29/2017 8:10 EST Re sults for this procedure are i n the results section. documented in this encounter Results SURGICAL PATHOLOGY (05/29/2017 8:10 EST) Pathology Report: SURGICAL PATHOLOGY REPORT [facility] Reports generated via electronic interface conta in original data; [facility] however they are lacking the format of the original re port. SERVICES Caution should be taken when reading/interpreting unfo rmatted reports. Name: ? PATRICK WINSTON ? Accession #: ? [id number] ? : ? 1970 (Age: 47) ??F ? Collect Date: ? 05/29/2017 ? Location: ? [facility] ? Receive Date: ? 017 ? Provider: JELLY YOUNGBLOOD MD Copy to: BRITNEY SILVA [facility] ? Final Pathologic Diagnosis: VULVA, POSTERIOR FOURCHETTE, BIOPSY: - Hyperplastic squamous epithelium with focal erosion and dense chronic inflammation. See comment. - Negative for dysplasia. Comment: PAS-amylase is negative for fungal organisms. ??Histologic sections show squamous epithelium with intraepithelial and sube pithelial stromal chronic inflammation composed predominately of small lymphocytes and occasi onal neutrophils. Characteristic features of l ichen sclerosis are not seen. ??Overall, the findings are nonspecific and appear r eactive in nature. The clinical history of perianal fistula is noted; however, i t is not known whether the patient has a history of inflammatory bowel disease, which can show similar non -specific morphologic features. There are no granu stephanie identified. Clinical correlation is essential. Dr. Winters 06/02/2017 11:58 AM Document reviewed and electronically signed by: JOSÉ ANTONIO VALIENTE MD Report ??Date: 06/04/2017 12:49 By the signature above, the attending physician certif ies that he/she has personally conducted a gross and/or microscopic examin ation of the described specimens and rendered or confirmed the above diagnosi s. 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 Received in formalin labelled with proper patient identification (initials L, S) and posterior fourche tte bx is an elongated dull ibarra tissue, 0.3 x 0.1 x 0.1 cm. Entirely submitted in 1. PRERNA Erwin (ASCP) 06/01/2017 7:45 AM End of Report Specimen Performing Organization Address City/State/ZIP Code Phon e Number [facility] [address] [place] [address] SERVICES documented in this encounter Visit Diagnoses Not on filedocumented in this encounter Care Teams Pot Firer Relationship Specialty Start Date End Date Carlos Alberto Muñiz MD PCP - General 01/26/[address] [place] [phone] documented as of this encounter
[2022-02-28 16:19] LABS: Iron 15 ug/dL (50-170); Total Iron Binding Capacity 336 ug/dL (250-450); Transferrin Sat 4 % (15-50)
[2022-02-28 16:30] LABS: Calculated LDL 111 mg/dL (<100); Cholesterol 197 mg/dL (<200); Ferritin 6 ng/mL (8-252); HDL Cholesterol 76 mg/dL (40-60); TSH (W/Ref FT4) 1.63 uIU/mL (0.36-3.74); Triglyceride 50 mg/dL (<150)
== END 2022-02-28 01:48 | disposition home or self-care (01) ==
LOC: LBO 01:47
PROVIDERS: PCP Family Medicine; Visit Provider Family Medicine
DX: E03.9 Hypothyroidism, unspecified (principal); D64.9 Anemia, unspecified; E78.5 Hyperlipidemia, unspecified
CPT/HCPCS: 36415; 80061; 82728; 83540; 83550; 84443

== ENCOUNTER 2022-03-07 11:51 | Outpatient (CLI) | payer BC, SELFPAY ==
[2022-03-07 15:59] LABS: Abs Immature Grans 0.02 10^3/uL (0.0-0.06); Absolute Basophil Count 0.04 10^3/uL (0.0-0.2); Absolute Monocyte Count 0.58 10^3/uL (0.1-0.8); Absolute Neutrophil Count 4.39 10^3/uL (1.2-6.7); Basophils % 0.5; Eosinophils % 1.4; HCT 33.2 % (36.0-46.0); HGB 9.9 g/dL (11.2-15.7); Immature Grans % 0.3; MCH 23.5 pg (27.0-33.0); MCHC 29.8 % (32.0-36.0); MCV 79 fL (80-95); MPV 9.5 fL (8.0-11.0); Monocytes % 7.9; Neutrophils % 59.9; Platelet Count 355 10^3/uL (130-400); RBC 4.22 10^6/uL (3.93-5.22); RDW 14.8 % (11.7-14.6); RDW-SD 42.5 fL; WBC 7.33 10^3/uL (4.4-10.8)
== END 2022-03-07 11:52 | disposition home or self-care (01) ==
LOC: LBO 11:52
PROVIDERS: PCP Family Medicine; Visit Provider Family Medicine
DX: D64.9 Anemia, unspecified (principal)
CPT/HCPCS: 36415; 85025

== ENCOUNTER 2022-07-22 02:33 | Outpatient (CLI) | payer BC, SELFPAY ==
--- NOTE | 2022-07-22 07:45 | DI.RAD_ITS ---
Exam(s) XR LUMBAR SPINE COMPLETE EXAM: XR LUMBAR SPINE COMPLETE CLINICAL HISTORY: low back pain with rt radicular sx/sciatica,M54.9. TECHNIQUE: 2D digital imaging was performed. COMPARISON: No exams were available for comparison FINDINGS: Five views: No evidence of fracture or listhesis. No pars defects. There is disc space narrowing at L1-2 and L2 -3 levels evident. Below this level the disc spaces exhibit normal height. SI joints unremarkable. No obvious facet arthropathy. IMPRESSION: Disc space narrowing at L1-2 and L2-3 levels noted. DATA REPOSITORY: RADIATION DOSE DELIVERED:
== END 2022-07-22 02:53 ==
PROVIDERS: PCP Family Medicine; Visit Provider Family Medicine
DX: M54.9 Dorsalgia, unspecified (principal); M48.061 Spinal stenosis, lumbar region without neurogenic claudication
CPT/HCPCS: 72110

== ENCOUNTER 2022-08-19 02:07 | Outpatient (CLI) | payer BC, SELFPAY ==
--- NOTE | 2022-08-19 07:00 | DI.MAMMO_ITS ---
Exam(s) US BREAST LT COMPLETE MG MAMMO DIAGNOSTIC UNI EXAM: MG MAMMO DIAGNOSTIC UNI -LEFT AND COMPLETE LEFT BREAST ULTRASOUND CLINICAL HISTORY: 6 MO F/U, R92.8, LT BREAST NODULES. TECHNIQUE: Unilateral LEFT BREAST CC AND MLO images were obtained with 3D tomosynthesis technique an rasheeda utilizing computer aided detection (CAD). LEFT BREAST COMPLETE ULTRASOUND PERFORMED INCLUDING ALL 4 QUADRANTS, RETROAREOLAR REGION AND IPSILATE RAL LEFT AXILLA COMPARISON: Prior mammograms were reviewed, the most recent being January 2022. FINDINGS: DIAGNOSTIC LEFT BREAST MAMMOGRAM: The fibroglandular tissue in the upper outer quadrant is again note d be dense. One of the nodular densities has slightly further increased in size (shown to be a cyst on ultrasound today). Other smaller benign-appearing nodules are unchanged. No new spiculated warren s. No malignant-appearing microcalcification groups. No new architectural distortion or skin thickening-traction. COMPLETE LEFT BREAST ULTRASOUND: At the 1 o'clock position there are 2 cysts again noted. One of these has slightly increased in size , presently measuring 10 by 6 millimeters and corresponds to the increased nodule on the mammogram. Adjacent to this is another smaller cyst which presently measures 3 x 2 millimeters, at slightly decr eased in size from previous 5 x 3 millimeter size. Most importantly, there are no solid lesions in all 4 quadrants of the left breast. Scanning of the left axilla is negative for significant adenopathy. IMPRESSION: No radiographic evidence of malignancy. Benign findings as described above. 2 cysts in the upper ou ter quadrant 1 o'clock position, 1 slightly larger than previously and the other slightly smaller. Appropriate follow-up, as discussed by myself with the patient today, is to keep this patient on her yearly mammogram schedule, this implying that her next bilateral mammogram would be in 6 months, with earlier imaging if a self detected breast change is noted. The patient was informed of the findings and follow-up recommendations prior to leaving the [facility] today. BI-RADS Category 2 - Benign Findings Breast Density - Category C - Heterogeneously dense Breast density Category C or D implies that the patient has dense breast tissue. Dense breast tissue can make it harder to find cancer on a mammogram. Dense breast tissue is also associated with an incr eased risk of breast cancer. This information about the result of the mammogram report was provided to the patient to raise their awareness. Use this report when you speak with the patient about their risks for breast cancer, which includes their family history. At that time, you may recommend additional screening tests (Ultrasoun d or MRI) as these tests may add significant information. A negative radiographic report should not delay biopsy if a dominant or clinically suspicious mass is present. Up to ten percent of cancers are not identified on mammography. A negative report may reinforce clinical impression. Adenosis and dense breasts may obscure an underlying neoplasm. False positive reports average 6 to 10%. Patient will receive a letter notifying them of these results.
== END 2022-08-19 02:27 ==
LOC: DI 02:09
PROVIDERS: PCP Family Medicine; Visit Provider Nurse Practitioner Family
DX: R92.8 Other abnormal and inconclusive findings on diagnostic imaging of breast (principal); N60.12 Diffuse cystic mastopathy of left breast; N63.21 Unspecified lump in the left breast, upper outer quadrant
CPT/HCPCS: 76642; 77061; 77065; G0279

== ENCOUNTER → 2023-02-17 01:30 | Outpatient (CLI) | payer BC, SELFPAY ==
--- NOTE | 2023-02-17 08:30 | DI.MAMMO_ITS ---
Exam(s) MAMMO SCREENING EXAM: MAMMO SCREENING CLINICAL HISTORY: screening,z12.39. TECHNIQUE: Bilateral full field digital CC and MLO mammographic images were obtained with 3D tomosyn thesis and utilizing computer aided detection (CAD). COMPARISON: Prior mammograms were reviewed. Prior ultrasound of 08/19/2022 was also reviewed FINDINGS: There has been no significant change in the appearance and distribution of the fibroglandular tissue. Nodular densities in the upper-outer quadrant of the left breast again noted, the dominant nodule cor responding to the 1 cm cyst seen on the prior ultrasound examination 6 months ago. This appears stab le in size. There are no new spiculated masses nor malignant appearing microcalcification groups. There is no significant architectural distortion nor skin thickening-retraction. IMPRESSION: No radiographic evidence of malignancy. Stable benign-appearing left breast findings. Appropriate follow-up lesions to keep this patient yearly mammogram schedule. Recommend repeat ultra sound examination at the time for next yearly mammogram, earlier if clinically indicated. BI-RADS Category 2 - Benign Findings Breast Density - Category B - Scattered areas of fibroglandular density Breast density Category C or D implies that the patient has dense breast tissue. Dense breast tissue can make it harder to find cancer on a mammogram. Dense breast tissue is also associated with an incr eased risk of breast cancer. This information about the result of the mammogram report was provided to the patient to raise their awareness. Use this report when you speak with the patient about their risks for breast cancer, which includes their family history. At that time, you may recommend additional screening tests (Ultrasoun d or MRI) as these tests may add significant information. A negative radiographic report should not delay biopsy if a dominant or clinically suspicious mass is present. Up to ten percent of cancers are not identified on mammography. A negative report may reinforce clinical impression. Adenosis and dense breasts may obscure an underlying neoplasm. False positive reports average 6 to 10%. Patient will receive a letter notifying them of these results.
== END ==
PROVIDERS: PCP Family Medicine; Visit Provider Nurse Practitioner Women's Health
DX: Z12.31 Encounter for screening mammogram for malignant neoplasm of breast (principal); N63.21 Unspecified lump in the left breast, upper outer quadrant
CPT/HCPCS: 77063; 77067

== ENCOUNTER 2023-02-25 16:09 | Outpatient (REF) | payer BC, SELFPAY ==
--- NOTE | 2023-02-25 15:30 | PAPFT_PTH ---
PATIENT: Grace Winston LOC: [facility] U#:[id number] AGE/SX: 52/F ROOM: RE02/25/[address]: Naila Baez NP : 1970 BED: DIS: 02/25/2023 SPEC #: [id number] RECD: 02/25/23 17:42 STATUS: HANK REQ #: [id number] USHA: 02/25/23 15:[address]: Naila Baez NP DEPT: [facility] Cytology RECD BY: Keena Ashley ENTERED: 02/25/23 17:42 SP TYPE: PAPFT OTHR DR: Emigdio Keane MD Tissues: 1 - CX/ENDOCX FOR PAP SMEARS Procedures: PAP THIN PREP/UVM Screening HPV DNA PROBE Comments: [id number]
== END 2023-02-25 16:10 | disposition home or self-care (01) ==
LOC: LBN 16:09
PROVIDERS: PCP Family Medicine; Visit Provider Nurse Practitioner Women's Health
DX: R87.810 Cervical high risk human papillomavirus (HPV) DNA test positive (principal); Z12.4 Encounter for screening for malignant neoplasm of cervix; Z11.51 Encounter for screening for human papillomavirus (HPV)
CPT/HCPCS: 88142; 87624

== ENCOUNTER 2023-03-24 15:55 | Outpatient (REF) | payer BC, SELFPAY ==
--- NOTE | 2023-03-24 15:10 | ENDO_PTH ---
PATIENT: Grace Winston LOC: [facility] U#:[id number] AGE/SX: 52/F ROOM: RE03/24/[address]: Nila Wells DO : 1970 BED: DIS: 03/24/2023 SPEC #: [id number] RECD: 03/25/23 12:39 STATUS: SOUT REQ #: [id number] USHA: 03/24/23 15:[address]: Nila Wells DEPT: Surgical Specimen RECD BY: Keena Ashley ENTERED: 03/25/23 12:40 SP TYPE: Endo OTHR DR: Emigdio Keane MD Tissues: 1 - ENDOCERVICAL BX/CURRETTE 2 - CERVICAL BIOPSY Procedures: GROSS AND MICRO LEVEL 4 Comments: [id number]
== END 2023-03-24 15:56 | disposition home or self-care (01) ==
LOC: LBN 15:55
PROVIDERS: PCP Family Medicine; Visit Provider Obstetrics & Gynecology
DX: Z85.41 Personal history of malignant neoplasm of cervix uteri (principal); Z86.19 Personal history of other infectious and parasitic diseases
CPT/HCPCS: 88305

== ENCOUNTER → 2023-04-08 01:07 | Outpatient (CLI) | payer BC, SELFPAY ==
--- NOTE | 2023-04-08 08:30 | DI.RAD_ITS ---
Exam(s) XR KNEE LT 3V AP,LAT,JUAN EXAM: XR KNEE LT 3V AP,LAT,JUAN CLINICAL HISTORY: left ant knee pain,m25.562. TECHNIQUE: 2D digital imaging was performed. Three views. COMPARISON: No exams were available for comparison FINDINGS: BONES: No acute fracture is present. Old distal femoral fracture deformity partially included on th e exam. No bony destructive lesion is seen. Postsurgical lucency proximal tibia. JOINTS: Mild to moderate narrowing of the femoral tibial joint spaces. Minimal periarticular spurrin g. A small joint effusion is seen. SOFT TISSUE: Normal. IMPRESSION: Oytc-qu-jymijqgx degenerative changes. DATA REPOSITORY: RADIATION DOSE DELIVERED:
== END ==
PROVIDERS: PCP Family Medicine; Visit Provider Nurse Practitioner Family
DX: M17.12 Unilateral primary osteoarthritis, left knee (principal)
CPT/HCPCS: 73562

== ENCOUNTER → 2023-04-29 01:39 | Outpatient (CLI) | payer BC, SELFPAY ==
--- NOTE | 2023-04-29 15:15 | DI.MRI_ITS ---
Exam(s) MR LOWER JOINT LT WO EXAM: MR LOWER JOINT LT WO CLINICAL HISTORY: ? meniscus injury,lt ant knee pain, m25.562 TECHNIQUE: Multiplanar multisequence MRI of the knee was performed. COMPARISON: CR XR KNEE LT 3V AP,LAT,JUAN from 04/08/2023 FINDINGS: There is motion artifact on most sequences EFFUSION: There is large knee joint effusion. There is no Irizarry cyst in the popliteal fossa MARROW:Mild intraosseous edema is noted in the medial tibial plateau. There are no significant osseo us lesions. PATELLOFEMORAL COMPARTMENT: The quadriceps tendon is intact. The patellar ligament is intact. There is moderate-advanced narrowing of the retropatellar cartilage over both facets. There are no o steochondral defects at this level. No degenerative cysts in the patella and no intraosseous signal to suggest recent patellar dislocation. CRUCIATE LIGAMENTS: There is some signal abnormality in the anterior cruciate ligament but not but th ere does not appear to be a high-grade tear of this structure.The posterior cruciate ligament is inta ct. MEDIAL COMPARTMENT/MEDIAL MENISCUS: There is a tear of the posterior horn of the medial meniscus. Th is is just medial to the root. Also horizontal tearing in the outer 3rd of the posterior horn.There is no meniscocapsular separation the anterior horn appears intact.. There is significant moderate cartilage loss over the main weight-bearing surface of the medial femor al condyle. Tiny marginal osteophyte. MEDIAL COLLATERAL LIGAMENT: The main component of the MCL is intact.. LATERAL COMPARTMENT/LATERAL MENISCUS: There is no evidence of lateral meniscal tear.Mild-moderate deg enerative changes in the articular cartilage also seen in the lateral compartment. No subarticular e glory in the lateral condyle. No osteochondral defects. ILIOTIBIAL BAND: Intact LATERAL COLLATERAL LIGAMENT COMPLEX: There is mild increased signal within the superior aspect of the fibular collateral ligament but no high-grade tear. Biceps femora is tendon appears intact.There is fluid in the popliteus tendon sheath but no tear of the tendon. IMPRESSION: 1. There is complex tear of the posterior horn of the medial meniscus. Moderate degenerative changes noted in the articular cartilage over the medial femoral condyle. 2. Lateral meniscus appears intact. There are mild-moderate degenerative changes in the articular ca rtilage over the main weight-bearing surface of the lateral femoral condyle. 3. Some increased signal in the ACL but without a full-thickness tear of this structure. PCL is inta ct. 4. No obvious high-grade collateral ligament tears. Some findings as described above in the fibular collateral ligament and popliteus components of the lateral collateral ligament complex but without h igh-grade tears of these structures. 5. Prominent joint effusion noted. DATA REPOSITORY:
== END ==
PROVIDERS: PCP Family Medicine; Visit Provider Nurse Practitioner Family
DX: M25.562 Pain in left knee (principal); S83.231A Complex tear of medial meniscus, current injury, right knee, initial encounter; X58.XXXA Exposure to other specified factors, initial encounter
CPT/HCPCS: 73721

== ENCOUNTER 2023-05-27 16:58 | Outpatient (CLI) | payer BC, SELFPAY ==
--- NOTE | 2023-05-27 14:45 | DI.RAD_ITS ---
Exam(s) XR FEMUR LT EXAM: XR FEMUR LT CLINICAL HISTORY: H/O FEMUR FRACTURE. TECHNIQUE: 2D digital imaging was performed. Three views. COMPARISON: None. FINDINGS: BONES: No acute fracture is present. Old fracture deformity of the mid to distal femoral shaft. No bony destructive lesion is seen. JOINTS: No dislocation present. Hip joint space is maintained. Mild acetabular spurring. Mild spur ring at the greater trochanter. Milder in the medial femoral tibial joint space of the knee. SOFT TISSUE: Normal. IMPRESSION: Old healed fracture deformity of the mid to distal femur. DATA REPOSITORY: RADIATION DOSE DELIVERED:
== END 2023-05-27 16:59 | disposition home or self-care (01) ==
LOC: DIORS 16:59
PROVIDERS: PCP Family Medicine; Visit Provider Student in an Organized Health Care Education/Training Program
DX: S72.414D Nondisplaced unspecified condyle fracture of lower end of right femur, subsequent encounter for closed fracture with routine healing; X58.XXXD Exposure to other specified factors, subsequent encounter
CPT/HCPCS: 73552

== ENCOUNTER 2023-06-16 01:56 | Outpatient (CLI) | payer BC, SELFPAY ==
[2023-06-16 12:48] LABS: HCT 36.3 % (36.0-46.0); HGB 11.6 g/dL (11.2-15.7); MCH 27.6 pg (27.0-33.0); MCV 86 fL (80-95); MPV 9.7 fL (8.0-11.0); Platelet Count 319 10^3/uL (130-400); RDW 13.4 % (11.7-14.6); RDW-SD 42.4 fL; WBC 6.14 10^3/uL (4.4-10.8)
[2023-06-16 12:57] LABS: ESR 10 mm/hr (0-30)
[2023-06-16 13:17] LABS: C-Reactive Protein 0.13 mg/dL (0.0-0.3); Calculated LDL 155 mg/dL (<100); Cholesterol 263 mg/dL (<200); HDL Cholesterol 79 mg/dL (40-60); Triglyceride 146 mg/dL (<150)
[2023-06-16 13:18] LABS: Iron 39 ug/dL (50-170); Total Iron Binding Capacity 348 ug/dL (250-450); Transferrin Sat 11 % (15-50)
[2023-06-16 15:39] LABS: Lab Add On Test DONE
[2023-06-16 16:46] LABS: Ferritin 7 ng/mL (8-252)
== END 2023-06-16 01:57 | disposition home or self-care (01) ==
LOC: LOS 01:57
PROVIDERS: PCP Family Medicine; Visit Provider Family Medicine
DX: D64.9 Anemia, unspecified (principal); R41.89 Other symptoms and signs involving cognitive functions and awareness; R53.83 Other fatigue; E78.5 Hyperlipidemia, unspecified; R51.9 Headache, unspecified; M19.09 Primary osteoarthritis, other specified site; Z79.899 Other long term (current) drug therapy
CPT/HCPCS: 36415; 80061; 85027; 85652; 82728; 83540; 83550; 86140

== ENCOUNTER 2024-04-08 09:55 | Outpatient (REF) | payer BC, SELFPAY ==
--- NOTE | 2024-04-08 08:30 | PAPFT_PTH ---
PATIENT: Grace Winston LOC: [facility] U#:[id number] AGE/SX: 53/F ROOM: RE04/08/[address]: Nila Wells DO : 1970 BED: DIS: 04/08/2024 SPEC #: [id number] RECD: 04/08/24 13:15 STATUS: HANK REQ #: [id number] USHA: 04/08/24 08:[address]: Nila Wells DEPT: [facility] Cytology RECD BY: Keena Ashley ENTERED: 04/08/24 13:16 SP TYPE: PAPFT OTHR DR: Emigdio Keane MD Tissues: 1 - CX/ENDOCX FOR PAP SMEARS Procedures: PAP THIN PREP/[facility] Screening HPV DNA PROBE Comments: [id number] (HPV 16 & 18/45)
== END 2024-04-08 09:56 | disposition home or self-care (01) ==
LOC: LBN 09:55
PROVIDERS: PCP Family Medicine; Visit Provider Obstetrics & Gynecology
DX: Z12.39 Encounter for other screening for malignant neoplasm of breast (principal); Z01.419 Encounter for gynecological examination (general) (routine) without abnormal findings; Z85.41 Personal history of malignant neoplasm of cervix uteri
CPT/HCPCS: 88142; 87624

== ENCOUNTER 2024-04-15 01:19 | Outpatient (CLI) | payer BC, SELFPAY ==
--- NOTE | 2024-04-15 15:00 | DI.MAMMO_ITS ---
Exam(s) MAMMO SCREENING EXAM: MAMMO SCREENING CLINICAL HISTORY: screening TECHNIQUE: Mammograms were interpreted according to the usual protocol including computer analysis w [employer] CAD system, tomosynthesis and C-view imaging. COMPARISON: 2014 through 2022 FINDINGS: The breasts are composed of scattered fibroglandular densities, Breast Density category B. No suspicious masses or suspicious microcalcifications are seen. Decrease in size of previously note d nodule in the upper outer quadrant of the left breast. No skin thickening or abnormal axillary lymph nodes are seen. There has been no significant change from prior exams. IMPRESSION: BI-RADS Category 2 - Benign Findings Yearly screening mammography is recommended. Breast Density - Category B, scattered fibroglandular densities. A negative radiographic report should not delay biopsy if a dominant or clinically suspicious mass is present. Up to ten percent of cancers are not identified on mammography. A negative report may reinforce clinical impression. Adenosis and dense breasts may obscure an underlying neoplasm. False positive reports average 6 to 10%. Patient will receive a letter notifying them of these results.
== END 2024-04-15 01:39 ==
LOC: DI 01:19
PROVIDERS: PCP Family Medicine; Visit Provider Obstetrics & Gynecology
DX: Z12.31 Encounter for screening mammogram for malignant neoplasm of breast (principal)
CPT/HCPCS: 77063; 77067

== ENCOUNTER 2024-04-26 15:17 | Outpatient (CLI) | payer BC, SELFPAY ==
--- NOTE | 2024-04-26 13:45 | DI.RAD_ITS ---
Exam(s) XR KNEE LT 4V AP,LAT,JUAN,PAT XR STANDING ALIGNMENT EXAM: XR STANDING ALIGNMENT CLINICAL HISTORY: LEFT KNEE PAIN. TECHNIQUE: 2D digital imaging was performed. Standing AP views were performed from the pelvis throu gh the ankles. COMPARISON: CR RIGHT KNEE 3 VIEWS from 11/27/2017 CR XR KNEE LT 3V AP,LAT,JUAN from 04/08/2023 CR XR FEMUR LT from 05/27/2023 CR XR KNEE LT 4V AP,LAT,JUAN,PAT from 04/26/2024 FINDINGS: BONES: No acute fracture is present. Old left femoral fracture deformity. No bony destructive lesio n is seen. Leg length discrepancy: No significant overall leg length discrepancy. JOINTS: Knees: Right knee: Mild narrowing of the medial femoral tibial joint space the right knee. Left knee: Moderate to severe narrowing of the medial femoral tibial joint space of the left knee wit h periarticular spurring. Findings have worsened compared to prior exam. The patellofemoral joint s pace is maintained shows mild periarticular spurring. The ankle joints are unremarkable. The hip joints are unremarkable. SOFT TISSUE: Mild lower leg edema bilaterally. 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 Mild degenerative changes of the right knee.. No significant leg length discrepancy. DATA REPOSITORY: RADIATION DOSE DELIVERED:
== END 2024-04-26 15:18 | disposition home or self-care (01) ==
LOC: DIORS 15:19
PROVIDERS: PCP Family Medicine; Visit Provider Student in an Organized Health Care Education/Training Program
DX: M17.12 Unilateral primary osteoarthritis, left knee (principal)
CPT/HCPCS: 73564; 77073

== ENCOUNTER 2024-07-14 04:46 | Outpatient (CLI) | payer OTHER, SELFPAY ==
[2024-07-14 10:04] LABS: HCT 37.3 % (36.0-46.0); HGB 11.2 g/dL (11.2-15.7); MCH 23.9 pg (27.0-33.0); MCV 80 fL (80-95); MPV 9.2 fL (8.0-11.0); Platelet Count 327 10^3/uL (130-400); RBC 4.69 10^6/uL (3.93-5.22); RDW 16.2 % (11.7-14.6); WBC 5.94 10^3/uL (4.4-10.8)
[2024-07-14 10:23] LABS: Anion Gap 4.4 mmol/L (3-11); BUN 19 mg/dL (7-18); CO2 30.6 mmol/L (21.0-32.0); CREATININE 0.8 mg/dL (0.55-1.02); Calcium 9.3 mg/dL (8.5-10.1); Chloride 104 mmol/L (98-107); Glucose 84 mg/dL (74-106); Potassium 4.1 mmol/L (3.5-5.1); Sodium 139 mmol/L (136-145)
== END 2024-07-14 04:47 | disposition home or self-care (01) ==
LOC: LBO 04:46
PROVIDERS: PCP Family Medicine; Visit Provider Student in an Organized Health Care Education/Training Program
DX: M17.12 Unilateral primary osteoarthritis, left knee (principal)
CPT/HCPCS: 36415; 80048; 85027

== ENCOUNTER 2024-07-27 07:09 | Day surgery (SDC) | payer OTHER, SELFPAY ==
[2024-07-27] VITALS (19 sets, daily range): BP systolic 111–145; BP diastolic 45–73; PULSE 68–102; RESP 11–21; TEMP 36–36.8; O2SAT 95–100; BMI 32.3
--- NOTE | 2024-07-27 07:23 | PDOC.DSDIS_ITS ---
Date of service: 07/27/24 Discharge Plan Disposition Patient Disposition: Home Condition: Good Discharge Details Reason For Visit: L TKR Attending Provider: Justyn Aviles Primary Care Provider: Emigdio Keane Home Meds and New Rx's Prescriptions: New acetaminophen 500 mg tablet 1,000 mg PO TID Qty: 90 3RF aspirin 81 mg tablet,delayed release (DR/EC) 81 mg PO BID Qty: 60 0RF celecoxib 200 mg capsule 200 mg PO BID Qty: 60 0RF pantoprazole 40 mg tablet,delayed release (DR/EC) 40 mg PO DAILY Qty: 30 0RF dexamethasone 4 mg tablet 4 mg PO DAILY Qty: 2 0RF gabapentin 300 mg capsule 300 mg PO QHS Qty: 14 0RF oxycodone 5 mg tablet 5 mg PO Q4H MDD 6 tabs PRN (Reason: pain) Qty: 20 0RF Continued amberen See Rx Instructions .ROUTE .COMPLEX Rx Instructions: 2 tabs daily. ; vitamin B complex [B Complex-Vitamin B12] Tablet 1 tab PO DAILY magnesium 250 mg tablet 500 mg PO DAILY medroxyprogesterone [Provera] 5 mg tablet 5 mg PO DAILY PRN (Reason: heavy menses) Qty: 30 1RF ondansetron 8 mg tablet,disintegrating 8 mg PO Q8H PRN (Reason: nausea and vomiting) Qty: 14 0RF ferrous sulfate 325 mg (65 mg iron) tablet,delayed release (DR/EC) 325 mg PO DAILY Qty: 90 3RF cholecalciferol (vitamin D3) 50 mcg (2,000 unit) tablet 50 mcg PO DAILY Claritin Liqui-Gel 10 mg capsule 10 mg PO PRN sumatriptan [Imitrex] 5 mg/actuation spray,non-aerosol 5 mg NS ONCE PRN (Reason: migraine headache) Qty: 6 3RF Rx Instructions: you may repeat dose in 1-2 hours for suboptimal effect Discontinued acetaminophen [Tylenol Extra Strength] 500 MG tablet 1,000 mg PO DAILY meloxicam 15 mg tablet 15 mg PO DAILY Qty: 90 3RF Discharge Instructions Additional Instructions: Total Knee Discharge Instructions Activity: The most important activity is to walk and to work on gentle motion (both flexion and extension). You should try to take short walks a few times a day. It is important that when resting you work on keeping the knee straight. Avoid putting a pillow behind the knee as this will encourage flexion. Work on range of motion exercises as provided by Physical Therapy. - Start outpatient physical therapy within 2 weeks. - You should wear the CK hose on both legs for 2 weeks. You may remove these at night. You may also use any compression sock in place of the CK hose. - Utilize [employer] to review exercises, see videos on exercises and obtain basic information pertaining to your surgery and your recovery. Dressing: Remove the Ramon wrap by 2 days after your surgery and put on the CK stocking given to you from the hospital. Keep the surgical dressing (underneath the RAMON wrap) in place for at least one week. After the first week it may be removed and replaced with light gauze and tape or nothing. The wound and dressing may get wet after 3 days but avoid soaking the dressing or otherwise it will need to be changed. Many people prefer covering the dressing with cling wrap (saran wrap) to minimize it from getting soaked. If it gets wet, just pat dry. If it starts to peel off then it will need to be changed. Medications: - You should take Tylenol and anti-inflammatory Celebrex as your primary pain control medications. If the Celebrex is too expensive or not covered, please call the office for another alternative (Advil/Ibuprofen or Naproxen/Aleve) - You have been prescribed a stronger pain medication Oxycodone for breakthrough pain, take as needed as prescribed. - You have also been prescribed a stomach acid reduction agent Pantoprozole to help reduce stomach acid and reflux. - You have been prescribed Gabapentin to take at night for restlessness and nerve pain. - You will be taking Aspirin 81mg twice a day for DVT prevention unless instructed otherwise. - You have also been prescribed Decadron to take to control post-operative nausea and pain. You will start this tomorrow. - If you have constipation you should take Colace or Miralax (both [id number]). It takes most people 3-4 days to have a bowel movement. Follow-up: 2 weeks If you have any acute concerns or questions, please do not hesitate to contact the office at [phone]. You may contact Dr. Aviles with any questions after hours through the hospital at [phone] or on his cell phone at [phone]. Referrals: Justyn Aviles MD [ [facility] STAFF PHYSICIAN] - Equipment/Supplies: Walker Activity:: Activity as Tolerated Shower/Bathe:: 72 hours Diet:: As Tolerated Discharge Orders Discharge Orders: Discharge Order (Routine); Ordered 07/27/24 Ordered By: Shade Jacob DS: Diagnosis Discharge Diagnosis (1) Primary osteoarthritis of left knee: Status: Chronic
[2024-07-27] MEDS: Gabapentin 300 MG CAP PO (07:39)
[2024-07-27] MEDS: Acetaminophen 500 MG TAB 1000 MG PO (07:39)
[2024-07-27] MEDS: Celecoxib 200 MG CAP 400 MG PO (07:39)
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
[2024-07-27] MEDS: Lactated Ringers 1,000 ML 80 ML IV (08:10)
--- NOTE | 2024-07-27 08:51 | W.ANESNERVE ---
Nerve Block Single Injection Procedure Date and Time Date Performed: 07/27/24 Procedure Start: 08:40 Location Where Procedure Performed Procedure Location: Day Surgery Unit Reason Performed: Postoperative Analgesia Requesting Provider: Justyn Aviles Timeout Performed Timeout Performed: Yes Monitoring Used ECG, Blood Pressure, SpO2 and See EMR for corresponding vital signs Sterility Sterility: Hand Hygiene, Surgical Cap, Surgical Mask, Sterile Gloves, Eye Protection and Chlorhexidine Sedation Given During Procedure Sedation Given (Indicate Dose Given): Versed IV Dose:: 2mg IVP Patient Mental Status Patient Mental Status: Sedate with meaningful communication Nerve Block 1st Nerve Block: Laterality: Left Block Type: Adductor Canal Ultrasound Image Saved?: Yes Needle / Catheter Used: 100mm SonoPlex II Local Anesthetic Bolus (Indicate Dose Given): Lidocaine used for local infiltration of skin and Ropivacaine 0.5% Dose:: 0.5%/20cc (100mg) Additives (Indicate Dose Given): Epinephrine to make 1:200,000 (5mcg/ml) Dose:: 100mcg and Decadron Dose:: 10mg PF Ultrasound: Sterile probe cover and gel used Nerve Stimulator: Supplement to Ultrasound use Paresthesia: None Procedure Tolerated: No Complications and Patient tolerated well Procedure Outcome: Successful Performed By: Danielito Fontanez
[2024-07-27] MEDS: ceFAZolin 2 GM/50 ML BAG IVPB (09:51)
[2024-07-27] MEDS: TRANEXAMIC ACID/SOD. CHL. 1,000 MG/100 ML BAG 600 MG IVPB (09:59)
--- NOTE | 2024-07-27 10:57 | ROE_ITS ---
Operative Note Operative Note PRE-OP DIAGNOSIS: Left Knee Osteoarthritis with Distal Femoral Malunion POST-OP DIAGNOSIS: same PROCEDURE: Left Total Knee Replacement with Intraoperative Navigation SURGEON: Justyn Aviles QUARTER DOPER: Jerrica Jacob ANESTHESIA TYPE: Spinal Refer to Anesthesia Record ESTIMATED BLOOD LOSS: 100 PATHOLOGY: none sent TOURNIQUET TIME: 0 COMPLICATIONS: None Patient was transported to: PACU Patient's condition: stable Implants: 1. Depuy Attune Cementless Cruciate Retaining Femoral Component, Size 5 2. Depuy Attune Cementless Fixed Bearing Tibial Component, Size 5 3. Depuy Attune 5x8mm CR/FB Poly 4. Depuy Attune Patellar Component, Size 35 Indications: I have seen Jennifer in clinic for symptoms of LEFT knee arthritis, confirmed with radiographic findings. Jennifer has exhausted nonoperative methods and was having significant limitations in daily function and desired better function and less pain. I discussed the technical details of a knee replacement. I explained the risks of the procedure to include, but not limited to, bleeding, infection, pain, stiffness, fracture, damage to nerves and vessels, damage to muscles and tendons, loosening, need for repeat procedure, blood clot and cardiopulmonary demise. Despite these risks, she elected to proceed. Findings: There was significant signs of arthritis throughout the knee with areas of focal full-thickness chondromalacia in all 3 compartments. Procedure Description: Jennifer was greeted in the preoperative holding area where the correct side was identified and marked. The consent was reviewed with the patient and signed. The history and physical was updated. All questions were answered. Preoperative mediacations were administered: Acetaminophen 1000mg, Celebrex 400mg, and Gabapentin 300mg. An adductor canal block was then administered by the anesthesia team in the DSU. She was taken back to the operating room. A spinal anesthestic was then administered. The patient was placed into the supine position on the operating room table. Posts were placed for positioning during the procedure. All bony prominences were well padded. Prophylactic antibiotics in the form of Cefazolin were administered. 1g of Tranxemic Acid was given intravenously within 30 minutes of incision. The left leg was then prepped with Chloraprep and draped in a standard fashion with impervious stockinette. A second prep with Chloraprep was performed prior to application of Iodine impregnated skin protection. A timeout to confirm correct identity, side and site, procedure, allergies, anesthesia, and medical concerns was performed. With the knee in some flexion, a midline incision was made overlying the knee. Full thickness skin flaps were raised once the extensor mechanism was encountered. These were raised medially and laterally. Any bleeding was controlled with electrocautery. Once the extensor mechanism was fully exposed, a medial parapatellar arthrotomy was performed in a flexed position. All bleeding from the arthrotomy and the geniculate arteries was coagulated. A medial subperiosteal peel was performed with electrocautery to the midcoronal plane. The fat pad was removed while keeping the patellar tendon protected. The anterior distal femur synovium was removed for later visualization. The ACL and PCL were resected and the anterior horn of the lateral meniscus was transected. The knee was then flexed with the patella everted. A single starting pin was then placed 1cm anterior to the PCL insertion and the notch in the direction of the femoral head. The OrthoAlign device was applied over the pin. It was oriented to be in line with the epicondylar axis and the trochlear groove. It was then pinned into place. The navigation computer was then turned on and calibrated. The distal femur cut was set at 0 degrees varus and 3.5 degrees flexion. The distal femur cutting guide then was positioned for a 9mm cut. The distal femur was cut with an oscillating saw while protecting the soft tissues. The tibia was then addressed. The OrthoAlign device was placed over the tibial tubercle and medial tibia and secured into position. Once again, OrthoAlign was calibrated and then set for a 0.5 degree varus cut and 5.5 degrees of posterior slope. With this locked into position, the cut thickness stylus was used to assess cut thickness. The medial side, most involved side, was set for a 6mm cut, which corresponded to 8mm laterally. This was then held in position and pinned into place with 2 additional pins and a cross pin for stability. The medial and lateral collateral ligaments were protected and the cut was performed. With this completed, it was assessed and noted to be of appropriate dimensions. The guide and OrthoAlign was removed. A spacer block was inserted and the knee was brought into extension to ensure enough space was present. . The Orthoalign gap balancing device was then placed in extension. This was used to ensure that the ligaments were properly balanced with up to 2 to 3 mm laxity laterally compared medially. The extension gap was measured as 20mm. The knee was then brought into 90 degrees of flexion and the ligament sales management trainee was once again placed. Under the same amount of force the flexion gap was measured. The Attune specific jig was placed and the flexion gap was made to match the extension gap. The femur was then sized as a size 5. The 4-in-1 cutting guide was the placed. An katina wing was used to confirm appropriate position of the anterior cut to avoid notching. This cutting guide was ensured to be flush on the cut surface and then pinned into place with headed pins. While protecting the soft tissues, quad tendon, and collateral ligaments, the anterior and posterior cuts were performed with a saw. The central two pins were removed and the posterior and anterior chamfers were cut next. The notch-cutting guide was placed. This was pinned to lateralize the femoral component as much as possible while keeping it flush on the cut surface. This was then pinned into position. A saw was used to make the notch cut. A rasp smoothed the cut surfaces. The medial and lateral menisci were removed. A trial femoral component was then inserted, impacted down to the cut surfaces, and the lug holes were drilled. A provisional trial tibial component was placed and the knee was brought through range of motion. The polyethylene was trialed until there was good flexion and extension with excellent stability to the medial and lateral collaterals. The patella was tracking without thumbs. A size 8mm polyethylene component provided the best range of motion and stability with less than 2mm gapping with medial and lateral stress and full extension without significant hyperextension. The tibial cut surface was fully exposed. The tibia was then sized as a 5. The tibia had been previously marked during trialing to correspond to the center of the tibial component to help with rotation. The trial was aligned to this jerrica, approximately rotated to the medial 1/3rd of the tibial tubercle. The trial was pinned into place. The tibia was prepared with a reamer and a keel punch and lug holes. The knee was then brought into extension and the patella was measured as 23mm. Using the patellar clamp and cut guide, this was resected to a flat surface with at least 13mm of thickness remaining. The size 35 patella fit the best. This was oriented and then clamped into position. The lugs were drilled. The trial components were removed. The final components were opened on the back table. The periosteal and capsular tissues, especially posteriorly, around the knee were then systematically injected with a periarticular cocktail consisting of 246mg of Ropivacaine, 0.5mg of Epinephrine, 0.08mg of Clonidine, and 30mg of Ketorolac, diluted to 100cc. On the back table, with the implants opened, the cement was mixed. One batch of high viscosity cement was prepared with vacuum assistance. After the cement was ready a small amount was placed on the cut surface of the patella and the patellar button was clamped into position and held. While the cement was hardening, the cementless knee components were placed. Starting with the tibial component, the tibia was subluxed anteriorly and the lug holes of the component were lined up. The tibia was then impacted with an impactor and mallet until the tibial component was in contact with the tibia. Then, the femoral component was inserted. The lug holes were aligned and the component was impacted into position. The final polyethylene component was inserted. The knee was irrigated with Surgiphor Betadine solution. This was allowed to sit in the knee for 3 minutes and then it was thoroughly irrigated out with saline. After the cement had finally cured, approximately 15min, the clamp was removed from the patella and the knee was taken through range of motion. The patella was tracking with a no-thumbs technique. The capsule was then reapproximated with a No. 1 Vicryl at multiple locations. The capsule was finally closed with a No. 2 Stratafix, barbed suture. Deep tissues were then reapproximated with 0 Vicryl and 2-0 Vicryl. The skin was closed with a running 3-0 Monocryl in a subcuticular fashion. This was reinforced with skin glue. A Mepilex silver dressing was applied along with a [id number] LINCOLN wrap. A CryoCuff was applied. Jennifer was transferred to the hospital bed without difficulty an suffering no apparent complication. Jennifer has a good prognosis. Physical therapy will start today and without restrictions, weight-bearing as tolerated. Aspirin 81mg BID will be used for DVT prophylaxis. Date of Procedure: 07/27/24
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
--- NOTE | 2024-07-27 13:27 | W.ANESPOSTOP ---
Postoperative Evaluation Date, Time and Location Date Performed: 07/27/24 Time Performed: 11:45 Patient Location: Day Surgery Unit Vital Signs Most Recent Imported Vital Signs: Most Recent Vital Signs Temp Pulse Resp BP Pulse Ox 36.2 C L 84 16 139/73 98 07/27/24 12:22 07/27/24 12:22 07/27/24 12:22 07/27/24 12:22 07/27/24 12:22 Pain Score Most Recent Pain Score: Most Recent Pain Score Pain Level 0 07/27/24 12:22 Assessment Mental Status: Awake (Alert & Oriented to Patient Baseline) Airway and Respiratory Function: Patent airway with normal (patient baseline) respiratory exam Cardiovascular Function: Hemodynamically Stable Hydration Status: Adequately Hydrated Nausea & Vomiting: No Nausea or Vomiting Pain: Pt. Denies Any Pain Peripheral Nerve Block: Regional nerve block not resolved at time of post operative discharge Postoperative Comments:: Spinal wearing off appropriately and headache resolved with coffee.
== END 2024-07-27 13:39 | disposition home or self-care (01) ==
PROVIDERS: PCP Family Medicine; Visit Provider Student in an Organized Health Care Education/Training Program
PROC: (CPT 27447; principal; 2024-07-27 09:15)
DX: M17.12 Unilateral primary osteoarthritis, left knee (principal); G89.18 Other acute postprocedural pain; M25.562 Pain in left knee; E83.119 Hemochromatosis, unspecified; D64.9 Anemia, unspecified; S72.492 Other fracture of lower end of left femur
CPT/HCPCS: 27447; 20985; 64447; 97162; 97530; C1776; J0171; J0690; J1100; J2003; J2250; J2401; J2405; J2704; J3475

== ENCOUNTER 2024-08-08 12:58 | Outpatient (CLI) | payer OTHER, SELFPAY ==
--- NOTE | 2024-08-08 09:35 | DI.RAD_ITS ---
Exam(s) XR KNEE LT 1V XR STANDING ALIGNMENT EXAM: XR STANDING ALIGNMENT CLINICAL HISTORY: S/P L TKA. TECHNIQUE: 2D digital imaging was performed. Standing AP views were performed from the pelvis throu gh the ankles. COMPARISON: CR XR KNEE LT 4V AP,LAT,JUAN,PAT from 04/26/2024 CR XR STANDING ALIGNMENT from 04/26/2024 CR XR KNEE LT 1V from 08/08/2024 FINDINGS: BONES: No acute fracture is present. Old mid to distal left femoral fracture. No bony destructive l esion is seen. Leg length discrepancy: No significant overall leg length discrepancy. JOINTS: Knees: Status post placement of a left total knee prosthesis which show satisfactory alignmen t. No abnormal surrounding lucencies. Mild medial femoral tibial joint space narrowing on the righ t. The ankle joints are unremarkable. The hip joints are unremarkable. SOFT TISSUE: Normal. IMPRESSION: Status post left knee prosthesis. No significant leg length discrepancy. DATA REPOSITORY: RADIATION DOSE DELIVERED:
== END 2024-08-08 12:59 | disposition home or self-care (01) ==
LOC: DIORS 12:59
PROVIDERS: PCP Family Medicine; Visit Provider Student in an Organized Health Care Education/Training Program
DX: Z96.652 Presence of left artificial knee joint (principal); Z47.1 Aftercare following joint replacement surgery
CPT/HCPCS: 73560; 77073

== ENCOUNTER 2025-03-27 14:59 | Outpatient (REF) | payer OTHER, SELFPAY | END 2025-03-27 15:00 | disposition home or self-care (01) | LOC: NCHCN 14:59 | PROVIDERS: PCP Family Medicine; Visit Provider Nurse Practitioner Family | DX: B99.9 Unspecified infectious disease (principal) | CPT/HCPCS: 87070; 87205 ==

== ENCOUNTER 2025-04-11 16:04 | Outpatient (CLI) | payer OTHER, SELFPAY ==
[2025-04-11 17:13] LABS: TSH (W/Ref FT4) 2.36 uIU/mL (0.36-3.74)
[2025-04-12 17:21] LABS: FSH 94.5 mIU/mL (See Note)
== END 2025-04-11 16:05 | disposition home or self-care (01) ==
LOC: LBO 16:05
PROVIDERS: PCP Family Medicine; Visit Provider Obstetrics & Gynecology
DX: N93.8 Other specified abnormal uterine and vaginal bleeding (principal)
CPT/HCPCS: 36415; 83001; 84443

== ENCOUNTER → 2025-05-02 02:09 | Outpatient (CLI) | payer OTHER, SELFPAY ==
--- NOTE | 2025-05-02 07:00 | DI.US_ITS ---
Exam(s) US PELVIS TRANSVAGINAL EXAM: US PELVIS TRANSVAGINAL CLINICAL HISTORY: ? Postmenopausal bleeding,Check stripe,dysfunctional uterine bleeding TECHNIQUE: Transabdominal and transvaginal imaging was performed using standard protocol. COMPARISON: No exams were available for comparison FINDINGS: The bladder is unremarkable as visualized. UTERUS: Retroverted. 7.3 x 3.8 x 5.2 cm Endometrium: 3 mm Myometrium: Unremarkable. Cervix: Unremarkable. OVARIES: Right: Cyst or mass: None. Left: Cyst or mass: None. DOPPLER: Color: Symmetric and uniform flow to both ovaries. No hyperemia. CUL-DE-SAC: Free fluid: None. IMPRESSION: 1. Normal-appearing uterus with endometrial stripe within normal limits. 2. Unremarkable bilateral ovaries. DATA REPOSITORY:
--- NOTE | 2025-05-02 12:46 | DI.MAMMO_ITS ---
Exam(s) MAMMO SCREENING EXAM: MAMMO SCREENING CLINICAL HISTORY: screening,z12.39 TECHNIQUE: Mammograms were interpreted according to the usual protocol including computer analysis with CAD system, tomosynthesis and C-view imaging. COMPARISON: 2016 through 2023 FINDINGS: The breasts are composed of scattered fibroglandular densities, Breast Density category B. No suspicious masses or suspicious microcalcifications are seen. Stable bilateral nodules. No skin thickening or abnormal axillary lymph nodes are seen. There has been no significant change from prior exams. IMPRESSION: BI-RADS Category 2 - Benign Findings Yearly screening mammography is recommended. Breast Density - Category B - There are scattered areas of fibroglandular density. Breast density Category C or D implies that the patient has dense breast tissue. Dense breast tissue can make it harder to find cancer on a mammogram. Dense breast tissue is also associated with an increased risk of breast cancer. This information about the result of the mammogram report was provided to the patient to raise their awareness. Use this report when you speak with the patient about their risks for breast cancer, which includes their family history. At that time, you may recommend additional screening tests (Ultrasound or MRI) as these tests may add significant information. A negative radiographic report should not delay biopsy if a dominant or clinically suspicious mass is present. Up to ten percent of cancers are not identified on mammography. A negative report may reinforce clinical impression. Adenosis and dense breasts may obscure an underlying neoplasm. False positive reports average 6 to 10%. Patient will receive a letter notifying them of these results.
== END ==
LOC: DI 02:09
PROVIDERS: PCP Family Medicine; Visit Provider Obstetrics & Gynecology
DX: Z12.31 Encounter for screening mammogram for malignant neoplasm of breast (principal); N93.8 Other specified abnormal uterine and vaginal bleeding; R92.323 Mammographic fibroglandular density, bilateral breasts
CPT/HCPCS: 77063; 77067; 76830; 76856

== ENCOUNTER 2025-05-23 16:08 | Outpatient (REF) | payer OTHER, SELFPAY ==
--- NOTE | 2025-05-23 16:00 | CER_PTH ---
PATIENT: Grace Winston LOC: [facility] U#:[id number] AGE/SX: 55/F ROOM: RE05/23/[address]: Nila Wells DO : 1970 BED: DIS: 05/23/2025 SPEC #: [id number] RECD: 05/23/25 17:58 STATUS: HANK REQ #: [id number] USHA: 05/23/25 16:[address]: Nila Wells DEPT: Surgical Specimen RECD BY: Keena Ashley ENTERED: 05/23/25 17:58 SP TYPE: CER OTHR DR: Emigdio Keane MD Tissues: 1 - CERVICAL BIOPSY Procedures: GROSS AND MICRO LEVEL 4 Comments: [id number]
== END 2025-05-23 16:09 | disposition home or self-care (01) ==
LOC: LBN 16:08
PROVIDERS: PCP Family Medicine; Visit Provider Obstetrics & Gynecology
DX: N84.1 Polyp of cervix uteri (principal)
CPT/HCPCS: 88305